=== PATIENT | female | born 1990 | race African-American/Black ===

== ENCOUNTER 2021-10-08 12:13 | Emergency (ER) | payer OTHER, SELFPAY ==
--- NOTE | ~2021-10-08 | CT_ITS ---
EXAMINATION: CTA chest PE protocol DATE: 10/08/2021 14:17 INDICATION: Shortness of breath TECHNIQUE: Computed tomography (CT) pulmonary angiogram of the chest was performed with 100 mL Omnipa que-350 intravenous contrast. Additional 3D reconstructions utilizing coronal maximum intensity proje ction (MIP) were performed. Automated exposure control and iterative reconstruction technique were em ployed. The dose-length product was 212.93 mGy-cm. COMPARISON: None FINDINGS: . contrast opacification of the pulmonary arteries. There is mild streak artifact from dense contrast in the superior vena cava and right atrium. No significant motion artifact. No pulmonary embolism. N o pneumonia, pulmonary edema, pleural effusion or pneumothorax. Heart size is normal. No pericardial effusion. Thoracic aorta is normal in caliber with no dissection. Small amount of mixed soft tissue a nd fat attenuation with typical triangular configuration the anterior mediastinum consistent with res idual thymic tissue. No pathologically enlarged thoracic lymphadenopathy. The upper abdomen and visua lized bones are unremarkable. IMPRESSION: 1. No pulmonary embolism or other acute cardiopulmonary disease. Reviewed, dictated and finalized at location A.
--- NOTE | ~2021-10-08 | XR_ITS ---
EXAMINATION: XR chest 2V DATE: 10/08/2021 12:52 INDICATION: Shortness of breath TECHNIQUE: PA and lateral views of the chest were obtained. COMPARISON: None FINDINGS: The lungs are clear with no focal airspace opacities, pulmonary edema, pleural effusion or pneumothor ax. The cardiomediastinal silhouette is normal. Mild right-sided vertebral body height loss at T11 wi th mild associated thoracolumbar levocurvature. IMPRESSION: 1. No acute cardiopulmonary disease. Reviewed, dictated and finalized at location A.
--- NOTE | 2021-10-08 12:28 | ECG_ITS ---
Measurements Intervals [place] Rate: 103 P: 72 NV: 145 QRS: 35 QRSD: 89 T: -37 QT: 327 QTc: 429 Interpretive Statements SINUS TACHYCARDIA POSSIBLE LEFT ATRIAL ENLARGEMENT [-0.1mV P WAVE IN V1/V2] CANNOT RULE OUT SEPTAL MYOCARDIAL INFARCTION , OF INDETERMINATE AGE [40+ ms Q WAVE IN V1/V2] NONSPECIFIC ST AND T-WAVE ABNORMALITY ABNORMAL ECG NO PREVIOUS ECG AVAILABLE FOR COMPARISON Electronically Signed On 10-08-2021 17:05:29 CDT by Nazario Mena M.D.
[2021-10-08 12:36] VITALS: BP 133/83; PULSE 102; RESP 20; TEMP 37.1; O2SAT 100
[2021-10-08 12:40] LABS: Basophils Percent Auto 0.3 % (0.2-1.2); Eosinophils Absolute Auto 0.1 K/mm3 (0-0.3); Eosinophils Percent Auto 1.2 % (0-4.4); Hematocrit 39.9 % (37.0-47.0); Hemoglobin 12.5 g/dL (12.0-15.0); Immature Granulocyte Absolute 0.01 K/mm3 (0.00-0.031); Immature Granulocyte Percent A 0.2 % (0-0.5); Lymphocytes Absolute Auto 2.02 K/mm3 (0.9-3.2); Lymphocytes Percent Auto 34.8 % (18.3-44.2); Mean Corpuscular HGB Conc 31.3 g/dl (32-36); Mean Corpuscular Hemoglobin 27.7 pg (26-34); Mean Corpuscular Volume 88.5 fl (80-100); Mean Platelet Volume 9.4 fl (7.4-10.4); Monocytes Absolute Auto 0.5 K/mm3 (0.1-0.6); Monocytes Percent Auto 7.7 % (2.6-8.5); Neutrophils Absolute Auto 3.2 K/mm3 (1.3-6.7); Neutrophils Percent Auto 55.8 % (45.5-73.1); Platelet Count Result 339 k/mm3 (150-375); Red Blood Count 4.51 M/mm3 (4.2-5.4); Red Cell Distribution Width 12.9 % (11.5-14.5); White Blood Count 5.8 K/mm3 (4.5-10.0)
[2021-10-08 12:54] LABS: Alanine Aminotransferase 14 U/L (4-35); Albumin Level 4.7 g/dL (3.5-5.1); Alkaline Phosphatase 62 U/L (38-126); Anion Gap 9 mmol/L (8-16); Aspartate Amino Transferase 25 U/L (14-36); Blood Urea Nitrogen 10 mg/dL (7-17); Carbon Dioxide 25 mmol/L (22-30); Chloride 105 mmol/L (98-107); Estimated CRCL calculation 91 ml/min; Estimated Glomerular Filt Rate > 60; Glucose 123 mg/dL (65-110); Potassium 3.5 mmol/L (3.4-5.0); Sodium 139 mmol/L (137-145)
--- NOTE | 2021-10-08 13:15 | PC.NURSE ---
Pt states she has a hx of PE 3 years ago and was hospitalized for a few days. States she was on warfarin immediately after.
[2021-10-08 13:18] VITALS: BP 98/63; PULSE 108; RESP 18; O2SAT 100
--- NOTE | 2021-10-08 15:03 | ED.SOB ---
HPI - SOB/Dyspnea General Chief Complaint: Shortness of Breath/Dyspnea Stated Complaint: sob/chest pain Time Seen by Provider: 10/08/21 13:25 History of Present Illness HPI Narrative: Patient is a 31-year-old female who presents ER with concerns for pulmonary embolism. Patient reports couple days ago she began having pain in her back but is started moving around into her right chest. Its worse with deep breath and with coughing and moving. No exertional dyspnea. No hemoptysis. No lower extremity swelling or cramping. No long distance travel. Patient has history of previous PE and is not currently anticoagulated. No history of heart disease. Related Data Allergies Allergy/AdvReac Type Severity Reaction Status Date / Time No Known Allergies Allergy Unverified 04/17/12 10:18 Review of Systems Review of Systems: All systems reviewed & are unremarkable except as noted in HPI and below Constitutional: Constitutional: Denies chills, Denies fever(s) and Denies weakness ENT: Denies nasal congestion and Denies sore throat Cardiovascular: Cardiovascular: Reports chest pain, Denies rapid heart rate and Denies radiating jaw, neck or arm pain Respiratory: Respiratory: Denies cough, Reports dyspnea and Denies wheezing Gastrointestinal: Gastrointestinal: Denies abdominal pain, Denies diarrhea, Denies nausea and Denies vomiting Musculoskeletal: Musculoskeletal: Reports back pain, Denies joint swelling and Denies muscle cramps Neurologic: Denies headache(s), Denies focal weakness and Denies numbness PMFSH Past Medical History Medical History (Updated 10/08/21 @ 15:06 by Pierce Godwin MD) Pulmonary embolism Surgical History Surgical History (Updated 10/08/21 @ 15:06 by Pierce Godwin MD) No pertinent past surgical history Social History Social History (Updated 10/08/21 @ 15:07 by Pierce Godwin MD) Smoking status: Never smoker Exam Narrative: GENERAL: Well-appearing, well-nourished, and in no acute distress. HEAD: Normocephalic, atraumatic. EYES: PERRL and EOMI. CHEST: Clear to auscultation. No respiratory distress. HEART: Regular rate and rhythm. Normal peripheral pulses. ABDOMEN: Soft, nontender, nondistended. EXTREMITIES: Normal range of motion. No edema. Back: No midline tenderness of the T/L-spine. No reproducible paraspinal or trapezius muscular tenderness. SKIN: Warm, dry, no rash. NEURO: Alert and oriented x3. PSYCH: Normal mood and affect. Course Course Emergency Course: Patient informed of results. Comforted by the fact that she does not have PE. Recommend anti-inflammatories at home. Patient verbalized understanding of treatment plan. Vital Signs Vital signs: Vital Signs Temperature 98.7 F 10/08/21 12:36 Pulse Rate 102 H 10/08/21 12:36 Respiratory Rate 20 10/08/21 12:36 Blood Pressure 133/83 10/08/21 12:36 Pulse Oximetry 100 10/08/21 12:36 Temperature 98.7 F 10/08/21 12:36 Pulse Rate 108 H 10/08/21 13:18 Respiratory Rate 18 10/08/21 13:18 Blood Pressure 98/63 L 10/08/21 13:18 Pulse Oximetry 100 10/08/21 13:18 MDM - SOB/Dyspnea Lab Data Result diagrams: 10/08/21 12:37 10/08/21 12:37 Labs: Lab Results 10/08/21 10/08/21 Range/Units 12:37 12:37 WBC 5.8 (4.5-10.0) K/mm3 RBC 4.51 (4.2-5.4) M/mm3 Hgb 12.5 (12.0-15.0) g/dL Hct 39.9 (37.0-47.0) % MCV 88.5 (80-100) fl MCH 27.7 (26-34) pg MCHC 31.3 L (32-36) g/dl RDW 12.9 (11.5-14.5) % Plt Count 339 (150-375) k/mm3 MPV 9.4 (7.4-10.4) fl Immature Gran % (Auto) 0.2 (0-0.5) % Neut % (Auto) 55.8 (45.5-73.1) % Lymph % (Auto) 34.8 (18.3-44.2) % Sandoval % (Auto) 7.7 (2.6-8.5) % Eos % (Auto) 1.2 (0-4.4) % Baso % (Auto) 0.3 (0.2-1.2) % Lymph # (Auto) 2.02 (0.9-3.2) K/mm3 Sandoval # (Auto) 0.5 (0.1-0.6) K/mm3 Eos # (Auto) 0.1 (0-0.3) K/mm3 Baso # (Auto) 0.0 (0.0-0.1) K/mm3 Abs Immat Gran (au
[2021-10-08 15:23] VITALS: BP 102/66; PULSE 70; RESP 18; O2SAT 98
== END 2021-10-08 15:24 | disposition home or self-care (01) ==
PROVIDERS: Emergency Medicine; Emergency Provider Emergency Medicine
DX: R07.89 Other chest pain (principal); M54.9 Dorsalgia, unspecified; Z86.711 Personal history of pulmonary embolism; R00.0 Tachycardia, unspecified; R94.31 Abnormal electrocardiogram [ECG] [EKG]
CPT/HCPCS: 36415; 71046; 71275; 80053; 85025; 93005; 99284; Q9967

== ENCOUNTER 2024-11-14 18:04 | Emergency (ER) | payer OTHER, SELFPAY ==
--- NOTE | ~2024-11-14 | CT_ITS ---
CTA chest PE protocol Ordering provider: Christie Mireles PA-C History: 34 years Female with . cp, sob, hemoptysis, hx PE . Comparison: None. Technique: CT angiogram chest was performed following timed intravenous injection of contrast. Thin s lice axial images and reformatted coronal images were obtained. Three dimensional reformatted images of the chest were also obtained using a [employer] workstation. . Automated exposure control and iterati ve reconstruction technique were employed. The dose-length product was 216.71 mGy-cm. 100 mL Omnipaqu e 350 was given IV. Findings: PULMONARY ARTERIES: No pulmonary embolus. VISUALIZED THORACIC INLET: Normal. MEDIASTINUM: Aorta/coronary arteries: The thoracic aorta is normal. Heart/other: The heart is not enlarged. Lymph nodes: No mediastinal or hilar adenopathy. LUNGS: No pulmonary nodules or masses. No infiltrates or effusions. No pneumothorax. Dependent atelectatic c hanges. VISUALIZED UPPER ABDOMEN: Cholelithiasis. Otherwise, the visualized upper abdomen is normal. The righ t renal arteries are noted. MUSCULOSKELETAL: Soft tissues: The superficial soft tissues are normal. Bones: Normal spine. IMPRESSION: 1. No pulmonary embolism. 2. No acute cardiopulmonary pathology. 3. Cholelithiasis. Reviewed, dictated and finalized at location A.
--- NOTE | ~2024-11-14 | XR_ITS ---
XR chest 2V Ordering provider: Christie Mireles PA-C History: 34 years Female with . CP . Comparison: October 08, 2021 FINDINGS: MEDIASTINUM: The cardiac silhouette is not enlarged. LUNGS: No infiltrates, effusions or pneumothorax. OTHER: No free air under the diaphragm. IMPRESSION: No acute cardiopulmonary pathology. Reviewed, dictated and finalized at location A.
--- OUTSIDE RECORDS SUMMARY | 2024-11-14 18:07 | XMS_ITS | Data Portability ---
Author Organization Lacey LAYTON Address [address] [place] [address] Assessment No assessment recorded. Plan of Treatment Reminders Order Date Submit Date Provider Last Modified By Organization Details Last Modified Time Details Appointments None recorded . Lab CBC w/ auto diff 2023 024 [facility], [address], [address], [place], [address], 4 19:09:08 PT/PTT, plasma 2018 019 [facility], [address], [address], [place], [address], 9 19:06:36 factor V mutation , blood or tissue 2018 019 [facility], [address], [address], [place], [address], 9 19:06:38 unlisted lab - protein C deficien cy profile 2018 019 [facility], [address], [address], [place], [address], 9 19:06:37 protein S activity , plasma 2018 019 [facility], [address], [address], [place], [address], 9 19:06:37 TSH + free T4, serum 2018 019 [facility], [address] [facility] [facility] [address], [place], [address], 9 19:06:35 CBC w/ auto diff [address] [facility], [address], [place], [address], 9 19:06:35 PT/INR 2018 019 [facility], [address], [place], [address], 9 10:13:00 PT/INR [address] [facility], [address], [place], [address], 9 15:18:40 Referral None recorded . Procedures None recorded . Surgeries None recorded . Imaging None recorded . Medication Orders Eliquis 5 mg tablet 2019 020 INTERFACE [facility] #[id number], [address], [place], [id number], 0 12:21:46 Xarelto 10 mg tablet 2018 019 [facility] #[id number], [address], [place], [id number], 0 11:40:41 Patient TargetsNo targets recorded. Patient InstructionsNo instructions recorded. Reason for Referral None Reported. Results Created Date Observation Date Name Description Value Unit Range Abnormal Flag Note LastModifiedBy Organization Detail LastModifiedTime 12/15/19 19 12/15/2018 PT/IN R INR 1.2 0.8-1. 2 Refer ence inter laura is for non-a ntico agula gill patie nts. Sugge sted INR thera peuti c range for Vitam in K antag onist thera py: Stand blu Dose (mode rate inten sity thera peuti c range ): 2.0 - 3.0 Highe r inten sity thera peuti c range 2.5 - 3.5 Not Available [facility] ([facility]) [address] [place], [address], 12/15/2018 10:13:00 12/15/1912/15/2018 PT/IN R prothrombin time 12.3 sec 9.1-12 .0 above high normal Not Available [facility] ([facility]) [address] [place], [address], 12/15/2018 10:13:00 12/15/1912/15/2018 PT/IN R pdf . Not Available [facility] ([facility]) [address] [place], [address], 12/15/2018 10:13:00 12/15/1912/15/2018 TSH + free T4, serum TSH 1.110 uIU/m L 0.450- 4.500 Not Available [facility] ([facility]) [address] [place], [address], 12/18/2018 19:06:35 12/15/1912/15/2018 TSH + free T4, serum T4,free(dire ct) 1.14 NG/dL 0.82-1 .77 Not Available [facility] ([facility]) [address] [place], [address], 12/18/2018 19:06:35 12/15/1912/15/2018 CBC w/ auto diff WBC 3.5 x10e3 /uL 3.4-10 .8 Not Available [facility] ([facility]) [address] [place], [address], 12/18/2018 19:06:35 12/15/1912/15/2018 CBC w/ auto diff RBC 4.90 x10e6 /uL 3.77-5 .28 Not Available [facility] ([facility]) [address] [place], [address], 12/18/2018 19:06:35 12/15/19 19 12/15/2018 CBC w/ auto diff hemoglobin 13.1 g/dL 11.1-1 5.9 Not Available [facility] ([facility]) [address] [place], [address], 12/18/2018 19:06:35 12/15/19 19 12/15/2018 CBC w/ auto diff hematocrit 41.3 % 34.0-4 6.6 Not Available [facility] ([facility]) [address] [place], [address], 12/18/2018 19:06:35 12/15/19 19 12/15/2018 CBC w/ auto diff MCV 84 fL 79-97 Not Available [facility] ([facility]) [address] [place], [address], 12/18/2018 19:06:35 12/15/1912/15/2018 CBC w/ auto diff MCH 26.7 pg 26.6-3 3.0 Not Available [facility] ([facility]) [address] [place], [address], 12/18/2018 19:06:35 12/15/1912/15/2018 CBC w/ auto diff MCHC 31.7 g/dL 31.5-3 5.7 Not Available [facility] ([facility]) [address] [place], [address], 12/18/2018 19:06:35 12/15/19 19 12/15/2018 CBC w/ auto diff RDW 15.0 % 12.3-1 5.4 Not Available [facility] ([facility]) [address] [place], [address], 12/18/2018 19:06:35 12/15/19 19 12/15/2018 CBC w/ auto diff platelets 357 x10e3 /uL 150-45 0 Not Available [facility] ([facility]) [address] [facility], [place], [address], 12/18/2018 19:06:35 12/15/19 19 12/15/2018 CBC w/ auto diff neutrophils 45 % not estab. Not Available [facility] ([facility]) [address] [facility], [place], [address], 12/18/2018 19:06:35 12/15/19 19 12/15/2018 CBC w/ auto diff lymphs 38 % not estab. Not Available [facility] ([facility]) [address] [place], [address], 12/18/2018 19:06:35 12/15/19 19 12/15/2018 CBC w/ auto diff monocytes 15 % not estab. Not Available [facility] ([facility]) [address] [place], [address], 12/18/2018 19:06:35 12/15/1912/15/2018 CBC w/ auto diff eos 1 % not estab. Not Available [facility] ([facility]) [address] [facility], [place], [address], 12/18/2018 19:06:35 12/15/19 19 12/15/2018 CBC w/ auto diff basos 1 % not estab. Not Available [facility] ([facility]) [address] [facility], [place], [address], 12/18/2018 19:06:35 12/15/1912/15/2018 CBC w/ auto diff immature cells [employer] SAL[employer] REPRESENTATIVE Not Available [facility] ([facility]) [address] [place], [address], 12/18/2018 19:06:35 12/15/19 19 12/15/2018 CBC w/ auto diff neutrophils (absolute) 1.6 x10e3 /uL 1.4-7. 0 Not Available [facility] ([facility]) [address] [place], [address], 12/18/2018 19:06:35 12/15/19 19 12/15/2018 CBC w/ auto diff lymphs (absolute) 1.3 x10e3 /uL 0.7-3. 1 Not Available [facility] ([facility]) [address] [place], [address], 12/18/2018 19:06:35 12/15/19 19 12/15/2018 CBC w/ auto diff monocytes(ab solute) 0.5 x10e3 /uL 0.1-0. 9 Not Available [facility] ([facility]) [address] [place], [address], 12/18/2018 19:06:35 12/15/19 19 12/15/2018 CBC w/ auto diff eos (absolute) 0.1 x10e3 /uL 0.0-0. 4 Not Available [facility] ([facility]) [address] [place], [address], 12/18/2018 19:06:35 12/15/19 19 12/15/2018 CBC w/ auto diff baso (absolute) 0.0 x10e3 /uL 0.0-0. 2 Not Available [facility] ([facility]) [address] [place], [address], 12/18/2018 19:06:35 12/15/19 19 12/15/2018 CBC w/ auto diff immature granulocytes 0 % not estab. Not Available [facility] ([facility]) [address] [place], [address], 12/18/2018 19:06:35 12/15/19 19 12/15/2018 CBC w/ auto diff immature grans (abs) 0.0 x10e3 /uL 0.0-0. 1 Not Available [facility] ([facility]) [address] [facility], [place], [address], 12/18/2018 19:06:35 12/15/19 19 12/15/2018 CBC w/ auto diff NRBC [employer] SALES REPRESENTATIVE Not Available [facility] ([facility]) [address] [facility], [place], [address], 12/18/2018 19:06:35 12/15/19 19 12/15/2018 CBC w/ auto diff hematology comments: [employer] SALES REPRESENTATIVE Not Available [facility] ([facility]) [address] [facility], [place], [address], 12/18/2018 19:06:35 12/15/19 19 12/15/2018 PT/PT T, plasm a INR 1.2 0.8-1. 2 Refer ence inter laura is for non-a ntico agula gill patie nts. Sugge sted INR thera peuti c range for Vitam in K antag onist thera py: Stand blu Dose (mode rate inten sity thera peuti c range ): 2.0 - 3.0 Highe r inten sity thera peuti c range 2.5 - 3.5 Not Available [facility] ([facility]) [address] [facility], [place], [address], 12/18/2018 19:06:36 12/15/19 19 12/15/2018 PT/PT T, plasm a prothrombin time 12.1 sec 9.1-12 .0 above high normal Not Available [facility] ([facility]) [address] [place], [address], 12/18/2018 19:06:36 12/15/19 19 12/15/2018 PT/PT T, plasm a APTT 32 sec 24-33 This test has not been valid ated for monit oring unfra ction ated hepar in thera py. aPTT- based thera peuti c range s for unfra ction ated hepar in thera py have not been estab lishe d. For gener al guide lines on Hepar in monit oring , refer to the [facility] Direc tory of Kristyn raphael. Not Available [facility] ([facility]) [address] [facility], [place], [address], 12/18/2018 19:06:36 12/15/19 19 12/16/2018 Coagu latio n Panel protein C-functional 101 % 73-180 Not Available [facility]) [address] [facility], [place], [address], 12/18/2018 19:06:37 12/15/19 19 12/18/2018 Coagu latio n Panel protein C antigen 90 % 60-150 Not Available [facility] ([facility]) [address] [facility], [place], [address], 12/18/2018 19:06:37 12/15/19 19 12/16/2018 prote in S activ ity, plasm a protein S-functional 15 % 63-140 below low normal A defic iency of prote in S (PS), eithe r conge nital or acqui red, incre ases the risk of throm boemb olism . PS activ ity level s may be false ly low in indiv idual s with APCR/ Facto r V Leide n. Consi shonda perfo rming free prote in S antig en in those with APCR/ Facto r V Leide n befor e sofi g a diagn osis of prote in S defic iency . Acqui red PS defic iency is more commo n than conge nital defic iency . PS value s decre ase with dmitriy l pregn ambar, and are also depen dent on age, sex and hormo ne statu s. PS value s tend to be lower in a young er age group and lower in women than in men. Level s may be decre ased in pre-m enopa usal women on oral contr acept jaclyn agent s. Acqui red defic iency can occur as a resul t of vitam in K defic iency or antag onism , sever e hepat ic disor ders, (hepa titis , cirrh osis, etc.) , nephr otic syndr ome, infla mmato ry bowel disea se, certa in chemo thera peuti c agent s, L-asp aragi nse thera py, sepsi s, disse minat ed intra vascu lar coagu latio n (DIC) and acute throm bosis . Level s may be decre ased in patie nts with polyc ythem ia vera, sickl e cell disea se and essen tial throm bocyt hemia . Iggy wild evalu ation on a new plasm a sampl e to confi rm or refut e this resul t shoul d be consi dered , after oxana callahan out acqui red cause s, depen ernesto on the clini carlton scena stefani. Nuris ified by iggy iwld lucy sis Not Available [facility] ([facility]) [address] [facility], [place], [address], 12/18/2018 19:06:37 12/15/1912/18/2018 facto r V mutat ion, blood or tissu e factor V leiden Commen t Resul t: Negat jaclyn (no mutat ion found ) Facto r V Leide n is a speci fic mutat ion (R506 Q) in the facto r V gene that is assoc iated with an incre ased risk of venou s throm bosis . Facto r V Leide n is more resis tant to inact ivati on by activ ated prote in C. As a resul t, facto r V persi sts in the circu latio n leadi ng to a mild hyper - coagu lable state . The Leide n mutat ion accou nts for 90% - 95% of APC resis tance . Facto r V Leide n has been repor gill in patie nts with deep vein throm bosis , pulmo nary embol us, centr al retin al vein occlu krystin, cereb ral sinus throm bosis and hepat ic vein throm bosis . Other risk facto rs to be consi dered in the kim p for venou s throm bosis inclu de the G2021 0A mutat ion in the facto r II (prot hromb in) gene, prote in S and C defic iency , and antit hromb in defic ienci es. Antic ardio lipin antib norah and lupus antic oagul ant lucy sis may be appro priat e for certa in patie nts, as well as homoc ystei ne level s. Conta ct your local [facility] for infor matio n on how to order addit ional testi ng if my ed. Gen etic couns elors are avail able for healt h care provi ders to discu ss resul ts at [phone] ([phone] ). Metho dolog y: DNA lucy sis of the Facto r V gene was perfo rmed by allel e-spe cific PCR. The diagn ostic sensi tivit y and speci ficit y is >99% for both. Molec ular- based testi ng is highl y accur ate, but as in any labor atory test, diagn ostic error s may occur . All test resul ts must be combi yi with clini carlton infor matio n for the most accur ate inter preta tion. This test was devel oped and its perfo rmanc e zoe cteri stics deter mined by [facility]. It has not been clear ed or appro kathy by the Food and Drug Admin istra tion. Refer ences : Brandon Thomas (1996 ). Clin [facility] 16:16 9-186 . Michele hein, PhD, FACMG Sharlene hartman, PhD, FAC Galina Null, MChetS., PhD, FACMG Air lang, PhD, FACMG Gaby Domingo, PhD, FACMG James goodman PhD, FACMG Not Available [facility] ([facility]) [address] [facility], [place], [address], 12/18/2018 19:06:38 08/10/19 24 08/10/2023 CBC WITH DIFFE RENTI AL/PL ATELE T WBC 6.1 x10e3 /uL 3.4-10 .8 Not Available [facility] [address] [place], [address], 08/10/2023 19:09:08 08/10/19 24 08/10/2023 CBC WITH DIFFE RENTI AL/PL ATELE T RBC 4.48 x10e6 /uL 3.77-5 .28 Not Available [facility] [address] [place], [address], 08/10/2023 19:09:08 08/10/19 24 08/10/2023 CBC WITH DIFFE RENTI AL/PL ATELE T hemoglobin 12.5 g/dL 11.1-1 5.9 Not Available [facility] [address] [place], [address], 08/10/2023 19:09:08 08/10/19 24 08/10/2023 CBC WITH DIFFE RENTI AL/PL ATELE T hematocrit 40.1 % 34.0-4 6.6 Not Available [facility] [address] [place], [address], 08/10/2023 19:09:08 08/10/19 24 08/10/2023 CBC WITH DIFFE RENTI AL/PL ATELE T MCV 90 fL 79-97 Not Available [facility] [address] [place], [address], 08/10/2023 19:09:08 08/10/19 24 08/10/2023 CBC WITH DIFFE RENTI AL/PL ATELE T MCH 27.9 pg 26.6-3 3.0 Not Available [facility] [address] [place], [address], 08/10/2023 19:09:08 08/10/19 24 08/10/2023 CBC WITH DIFFE RENTI AL/PL ATELE T MCHC 31.2 g/dL 31.5-3 5.7 below low normal Not Available [facility] [address] [place], [address], 08/10/2023 19:09:08 08/10/19 24 08/10/2023 CBC WITH DIFFE RENTI AL/PL ATELE T RDW 12.9 % 11.5-1 4.5 Not Available [facility] [address] [place], [address], 08/10/2023 19:09:08 08/10/19 24 08/10/2023 CBC WITH DIFFE RENTI AL/PL ATELE T platelets 413 x10e3 /uL 150-45 0 Not Available [facility] [address] [place], [address], 08/10/2023 19:09:08 08/10/19 24 08/10/2023 CBC WITH DIFFE RENTI AL/PL ATELE T neutrophils 54 % notest b. Not Available [facility] [address] [place], [address], 08/10/2023 19:09:08 08/10/19 24 08/10/2023 CBC WITH DIFFE RENTI AL/PL ATELE T lymphs 33 % notest b. Not Available [facility] [address] [place], [address], 08/10/2023 19:09:08 08/10/19 24 08/10/2023 CBC WITH DIFFE RENTI AL/PL ATELE T monocytes 10 % notest b. Not Available [facility] [address] [place], [address], 08/10/2023 19:09:08 08/10/19 24 08/10/2023 CBC WITH DIFFE RENTI AL/PL ATELE T eos 2 % notest b. Not Available [facility] [address] [place], [address], 08/10/2023 19:09:08 08/10/19 24 08/10/2023 CBC WITH DIFFE RENTI AL/PL ATELE T basos 1 % notest b. Not Available [facility] [address] [place], [address], 08/10/2023 19:09:08 08/10/19 24 08/10/2023 CBC WITH DIFFE RENTI AL/PL ATELE T neutrophils (absolute) 3.3 x10e3 /uL 1.4-7. 0 Not Available [facility] [address] [place], [address], 08/10/2023 19:09:08 08/10/19 24 08/10/2023 CBC WITH DIFFE RENTI AL/PL ATELE T lymphs (absolute) 2.0 x10e3 /uL 0.7-3. 1 Not Available [facility] [address] [place], [address], 08/10/2023 19:09:08 08/10/19 24 08/10/2023 CBC WITH DIFFE RENTI AL/PL ATELE T monocytes(ab solute) 0.6 x10e3 /uL 0.1-0. 9 Not Available [facility] [address] [place], [address], 08/10/2023 19:09:08 08/10/19 24 08/10/2023 CBC WITH DIFFE RENTI AL/PL ATELE T eos (absolute) 0.1 x10e3 /uL 0.0-0. 4 Not Available [facility] [address] [place], [address], 08/10/2023 19:09:08 08/10/19 24 08/10/2023 CBC WITH DIFFE RENTI AL/PL ATELE T baso (absolute) 0.1 x10e3 /uL 0.0-0. 2 Not Available [facility] [address] [place], [address], 08/10/2023 19:09:08 08/10/19 24 08/10/2023 CBC WITH DIFFE RENTI AL/PL ATELE T immature granulocytes 0.3 % notest b. Not Available [facility] [address] [place], [address], 08/10/2023 19:09:08 08/10/19 24 08/10/2023 CBC WITH DIFFE RENTI AL/PL ATELE T immature grans (abs) 0.0 x10e3 /uL 0.0-0. 1 Not Available [facility] [address] [place], [address], 08/10/2023 19:09:08 08/10/19 24 08/10/2023 CBC WITH DIFFE RENTI AL/PL ATELE T NRBC 0 % 0-0 Not Available [facility] [address] [place], [address], 08/10/2023 19:09:08 06/29/19 20 05/15/2019 CT, chest , w/ contr ast No observ ation [facility] ed. [facility] Ad[facility] Registration [address] [place], [address], 06/29/2019 16:35:22 Result Notes None recorded. Problems Name Problem SNOMED Code Status Onset Date Resolution Date Notes Provider Name and Address Organization Details Recorded Time Pulmonary embolism 49620815 Active 2018 I26.9 Sherin Crane RN null, [place] [facility] 0 10:12:36 Protein C deficiency disease 93130159 Active 2018 Lou Mariee MD Attn: Sigifredo callahan,[address] [place], [address] [facility] [place] [facility] 9 17:09:57 Protein S deficiency disease 7042618 Active 2019 D53.0 Sherin Crane RN [place], [place] [facility] 0 10:08:16 History of pulmonary embolism on long-term anticoagula tion therapy 4046961734704 9101 Active 2018 Z86.71 1 Sherin Crane RN null, [place] [facility] 0 10:11:39 Problem Notes None recorded. Procedures Surgical History Date Name Laterality Status Provider Name and Address Organization Details Recorded Time Caesarean Section completed Juan Pablo Whitney MA [facility] 11/17/2018 14:13:50 Imaging Results None recorded. Procedure Notes None recorded. Medical Equipment None Reported. Allergies Allergen ID Allergen Name Allergen Category Reaction Reaction Severity Criticality Documentation Date Start Date Code Code System Note Provider Name and Address Organization Details Recorded Time 113981 morphine medicatio n itching Not available Not available 11/17/2018 7052 RxNorm Juan Pablo Whitney MA [facility], [facility] 9 14:11:52 686903 warfarin medicatio n other severe Not available 06/29/2019 45622 RxNorm Cause s Kidne y Infec tion Sympt oms Sherin Crane RN [facility], [facility] 0 16:20:45 Medications Name Sig Start Date Stop Date Status Note LastModified by Organization Details LastModified Time Prescript ion - Prior Authoriza tion Request 07/06 completed [facility] Prior Authoriz ation Request Not Available Not Available Not Available acetamino phen 325 mg tablet 07/06 completed Not Available Not Available Not Available azithromy guerline 250 mg tablet 11/17 completed Not Available Not Available Not Available fluconazo le 150 mg tablet 11/17 completed Not Available Not Available Not Available metronida zole 0.75 % (37.5 mg/5 gram) vaginal gel INSERT 1 APPLICAT ORFUL VAGINALL Y EVERY DAY AT BEDTIME FOR 5 NIGHTS active Not Available Not Available No t Available warfarin 5 mg tablet 07/06 completed Not Available Not Available Not Available levofloxa guerline 500 mg tablet 07/06 completed Not Available Not Available Not Available naproxen 500 mg tablet 11/17 completed Not Available Not Available Not Available Xarelto 10 mg tablet 07/06 completed Not Available Not Available Not Available Eliquis 5 mg tablet active [facility] Not Available Not Available Not Available Vitals Date Recorded Body height Body mass index (BMI) Body weight Body temperature Oxygen saturation Oxygen saturation in Arterial blood by Pulse oximetry Heart rate Provider Name and Address Organization Details Last Updated DateTime 0 170.82 cm 24.5 kg/m2 55255.8 8 g 98.4 [degF] 100 % 100 % 96 /min Juan Pablo Whitney MA [facility] 0 11:47:17 Date Recorded Body height Body mass index (BMI) Body weight Heart rate Oxygen saturation Oxygen saturation in Arterial blood by Pulse oximetry Systolic blood pressure Diastolic blood pressure Provider Name and Address Organization Details Last Updated DateTime 4 170.18 cm 28 kg/m2 52572.0 3 g 86 /min 100 % 100 % 126 mm[Hg] 78 mm[Hg] Ericka Ramirez MA [facility] 4 11:25:42 Date Recorded Body height Body mass index (BMI) Body weight Body temperature Oxygen saturation Oxygen saturation in Arterial blood by Pulse oximetry Heart rate Systolic blood pressure Diastolic blood pressure Provider Name and Address Organization Details Last Updated DateTime 9 170.82 cm 23.6 kg/m2 36855.4 7 g 98.4 [degF] 98 % 98 % 93 /min 90 mm[Hg] 56 mm[Hg] Juan Pablo Whitney MA [facility] 9 14:19:28 Date Recorded Body height Body mass index (BMI) Body weight Heart rate Body temperature Oxygen saturation Oxygen saturation in Arterial blood by Pulse oximetry Systolic blood pressure Diastolic blood pressure Provider Name and Address Organization Details Last Updated DateTime 9 170.82 cm 23.4 kg/m2 82967.2 9 g 88 /min 98.1 [degF] 98 % 98 % 102 mm[Hg] 68 mm[Hg] Yolanda Akins [facility] 9 11:22:26 Social History Question Answer Notes LastModified by Organizat ion Details LastModified Time Tobacco Smoking Status Never Smoker Juan Pablo Whitney MA null, [facility] 11/17/2018 14:13:59 Do You Have An Advance Directive? No Information not available 08/10/2023 Are You Blind Or Do You Have Difficulty Seeing? No Information not available 08/10/2023 What Is Your Level Of Caffeine Consumption? Occasional Information not available 12/14/2018 How Much Tobacco Do You Chew? None Information not available 12/14/2018 Are You Deaf Or Do You Have Serious Difficulty Hearing? No Information not available 08/10/2023 What Type Of Diet Are You Following? REGULAR Information not available 12/14/2018 Which Illicit Or Recreational Drugs Have You Used? Marijuana Information not available 12/14/2018 What Is The Highest Grade Or Level Of School You Have Completed Or The Highest Degree You Have Received? [id number] Information not available 08/10/2023 Marital Status Informatio n not available 12/14/2018 What Was The Date Of Your Most Recent Tobacco Screening? 08/10/2023 Information not available 08/10/2023 What Is Your Relationship Status? Single Information not available 08/10/2023 Do You Use Your Seat Belt Or Car Seat Routinely? Yes Information not available 08/10/2023 General Stress Level Low Information not available 12/14/2018 Sex: Female Functional Status Question Answer Note LastModified by Organizat ion Details LastModified Time Do you use any illicit or recreational drugs? No Information not available 08/10/2023 What is your level of alcohol consumption? Occasional [email or web address] Information not available 11/17/2018 Are you currently employed? Yes Information not available 08/10/2023 Are you able to care for yourself? Yes Information not available 08/10/2023 What is your occupation? [employer] Information not available 08/10/2023 What is your exercise level? None Information not available 12/14/2018 Mental Status Question Answer Note LastModified by Organization D etails LastModified Time Do you feel stressed (tense, restless, nervous, or anxious, or unable to sleep at night)? [id number] Information not available 08/10/2023 Family History Nothing Reported. Medical History Condition Response Blood Clots Y Gynecological History Statement/Question Response Flow Moderate Date of LMP 07/19/2023 Frequency of Cycle (Q days) 30 On BCP's at Conception? N Menses Monthly Y Duration of Flow (days) 4 Age at Menarche 16 Current Control Method Unknown Age at First Child 19 LMP Approximate Obstetrics History GPAL:G 2 P 2 0 0 2 Type Value Full Term 2 Living 2 Total 2 Past Encounters Encounter ID Performer Location Encounter Start Date Encounter Closed Date Diagnosis/Indication Diagnosis SNOMED-CT Code Diagnosis ICD10 Code Diagnosis Note [id number] Lou Mariee [facility] (Adult [facility] [address] [place] [address] [phone] 11/17/2018 13:50:56 11/17/2018 17:19:06 History of pulmonary embolus 566855642 Z86.711 On coumadin. 5 mg/day , discussed with patient about pro nd con, benefit and possible risks and needs at least 6 months duration of treatment and regulat monitoring of INR and adjustment of dosage. She just got 30 days . About 10 days ago in hospital. [id number] MD [facility] (Adult Med) [address] [place] [address] [phone] 12/14/2018 11:00:07 12/15/2018 10:40:05 History of pulmonary embolus 838095863 Z86.711 On coumadin. 5 mg/day , discussed with patient about pro nd con, benefit and possible risks and needs at least 6 months duration of treatment and regulat monitoring of INR and adjustment of dosage. She just got 30 days . About 10 days ago in hospital. Her protime and INR was over 6 for which coumadin was stopped for 1 week, and she is going to be out of town, It is very difficulty to manage her Pulmonary Emboli with precise INR, will try xarelto with prio authorizat ion from her insurance . Discussed with patient. Unintentio nal weight loss 055968350 R63.4 Discussed with patient. 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 [id number] MD [facility] (Adult Med) [address] [place] [address] [phone] 07/06/2019 11:05:52 07/10/2019 09:35:13 Protein C deficiency disease [id number] D68.59 Discussed with patient. was provided the report of her protein S deficiency , needs life ling anticoagul ant with angela simons, she agreed the eliquis. ailin has no sign/sympt omes of Thrombosis . [id number] MD [facility] (Adult Med) [address] [place] [address] [phone] 08/10/2023 11:08:16 08/15/2023 17:32:01 Adult health examination [id number] Z00.00 Physical ex performed today. She wants hemoglobin today, which will be in CBC, she agreed, Health Concerns Section Related Observation LastModified by Organization [place] [facility] LastModified Time None Recorded Concern Status LastModified by Organization Details LastModified Time None Recorded Advance Directives Directive N: Payers Encounter Date Sequence Insurance Name Policy Number Policy Branch Covered Member ID Branch Member ID Guarantor Name 11/17/2018 1 [facility] PRIOR TO 12/18/2020 (MEDICAID REPLACEMENT - HMO) Neha Flood [id number] Neharusty Flood 12/14/2018 1 [facility] PRIOR TO 12/18/2020 (MEDICAID REPLACEMENT - HMO) Neha Flood [id number] Neha Flood 07/06/2019 1 [facility] PRIOR TO 12/18/2020 (MEDICAID REPLACEMENT - HMO) Neha Flood [id number] Neha Flood 08/10/2023 1 [facility] PRIOR TO 12/18/2020 (MEDICAID REPLACEMENT - HMO) Neha Flood [id number] Neha Flood Notes Date Note Type Note Provider Name and Address Organization Details Recorded Time 11/17/2018 text/html First time, hospital visit for PE.. Allergic to morphine. Has controll implantation. not a smoker. Lou Mariee MD Attn: [address] [place], [address], [facility] 11/17/2018 16:08:59 12/14/2018 text/html 1. Went to [facility] last week, no UTI. 2. INR was 6 one week ago , coumadin was off since for one week,. 3.Loosing weight , allergic to morphine. She is going to discuss with her Database Specialist for the alternative of controll pill or method, since she had PE in October 2018., hard to manage her INR and coumadin, will request the alternative anticoagulant. Will check up the genetic coagulant defect. Lou Mariee MD Attn: [address] [place], [address], [facility] 12/14/2018 11:51:25 08/10/2023 text/html Office visit, wants surgical clearnce before surgery for breasts augmentation mammaplasty at [place] next month. No cardiac condition, no chest pain, no shortness of breath, no fever, on no anticoagulation med. No swelling of legs, .years ago had C/Sections. ROS as noted in HPI. Lou Mariee MD Attn: [address] [facility], [place], [address], [facility] 08/10/2023 17:54:35 OBGyn Episode No OBEpisode recorded.
--- OUTSIDE RECORDS SUMMARY | 2024-11-14 18:07 | XMS_ITS | Clinical Summary ---
Author Organization [facility] [employer] Address [address] [place] [address] Care Team Providers Care Neon Sign Installer Name Role Phone Unavailable Primary Care Provider Unavailabl e Source Comments [facility] [employer],non-owned Affiliates and Associated Physician Practices is amultiple site organization consisting of ambulatory clinics and hospital sitesin [place], [place], [place] and [place]. This disclosure is being madepursuant to the Care Everywhere program and may not contain all information available regarding this patient. Last updated 18.[facility] [employer] Allergies Active Allergy Reactions Criticality Noted Date Comments Morphine Itching Low 12/06/2018 Warfarin Other High 09/14/2023 Medications * Be aware that medications may not be up to date on this document. Alwaysverify current medications with the patient. ibuprofen (MOTRIN) 400 MG tablet Take 1 tablet by mouth every 6 hours as needed for Pain 30 tablet 0 Active Additional Information Patient not taking.Reported on 09/14/2023 Active Problems No known active problems Family History Medical History Relation Name Comments None Known Father None Known Mother Relation Name Status Comments Father Mother Social History Tobacco Use Types Packs/Day Years Used Date Smoking Tobacco: Never Smokeless Tobacco: Never Tobacco Cessation:Counseling Given: Not Answered Comments:Formerly smoked hookah socially (not since 2018) Alcohol Use Standard Drinks/Week Comments Yes 0 (1 standard drink = 0.6 oz pur e alcohol) ocassional Comments No Sex and Gender Information Value Date Recorded Sex Assigned at Not on file Legal Sex Female 10:36 PM CDT Gender Identity Not on file Sexual Orientation Not on file Last Filed Vital Signs Vital Sign Reading Time Taken Comments Blood Pressure 109/76 09/14/2023 12:09 PM CDT Pulse 84 09/14/2023 12:09 PM CDT Temperature 37.4 C (99.3 F) 09/14/2023 12:09 PM CDT Respiratory Rate 16 09/14/2023 12:09 PM CDT Oxygen Saturation 98% 09/14/2023 12:09 PM CDT Inhaled Oxygen Concentration - - Weight 82.7 kg (182 lb 4.8 oz) 09/14/2023 12:09 PM CDT Height 172.7 cm (5' 8) 05/30/2020 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 Body Mass Index 27.72 05/30/2020 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 Plan of Treatment Health Maintenance Due Date Last Done Comments PAP SMEAR 1992 HIV SCREENING 2007 HEPATITIS C SCREENING 06/08/2010 DTAP/TDAP/TD VACCINES (1 - Tdap) 2011 HEPATITIS B VACCINE (1 of 3 - 19+ 3-dose series) 2011 COVID-19 VACCINE (1 - 2023-2 5 season) 2024 DEPRESSION SCREENING 06/20/2024 INFLUENZA VACCINE (Season Ended) 2025 ZOSTER VACCINE (1 of 2) 2042 HIB VACCINE Aged Out No longer eligi ble based on patient's age to complete this topic HPV VACCINE Aged Out No longer eligi ble based on patient's age to complete this topic MENINGOCOCCAL (Group B) VACC INE SHARED DECISION-MAKING Aged Out No longer eligibl e based on patient's age to complete this topic MENINGOCOCCAL GROUPS A/C/Y/W VACCINE Aged Out No longer eligible b ased on patient's age to complete this topic PNEUMOCOCCAL VACCINE Aged Out No long er eligible based on patient's age to complete this topic Insurance JIMENA
--- OUTSIDE RECORDS SUMMARY | 2024-11-14 18:07 | XMS_ITS | CONTINUITY OF CARE DOCUMENT ---
Author Name joao shepherd Address Unknown Organization [facility] Address [address] [facility] [address] [place] [address] Phone [phone] Care Team Providers Care [employer] Name Role Phone Audelia Murillo MD Unavailable [phone] Audelia Murillo MD Unavailable INSURANCE PROVIDERS Payer name Policy type / Coverage type Olivia red green party ID [id number] MEDICAID (2) Medicaid [id number]
--- OUTSIDE RECORDS SUMMARY | 2024-11-14 18:07 | XMS_ITS | Data Portability ---
Author Organization [facility] Address [address] [place] [address] Care Team Providers Care District Manager Name Role Phone GUMARO FENTON Primary Care Provider [phone] Assessment Encounter Date Assessment Date Assessment LastModified by Organization Details LastModified Time 05/25/2021 05/25/2021 nexplanon removed, replaced. WWE done 02/2021. [email or web address] Not available 05/26/2021 09:00:07 05/20/2022 05/20/2022 Annual gynecological exam performed. Patient will come back in a year unless there are new symptoms. Not available 05/20/2022 17:43:09 08/03/2023 08/03/2023 Annual gynecological exam performed. Patient will come back in a year unless there are new symptoms. [email or web address] Not available 08/03/2023 18:49:25 Plan of Treatment Reminders Order Date Submit Date Provider Last Modified By Organization Details Last Modified Time Details Appointments None recorded. Lab None recorded. Referral primary care provider referral 2023 024 [email or web address] Shira Mays FIRE ALARM TECHNICIAN, [address] [facility] , [address], [place], [address], 10:13:17 Procedures None recorded. Surgeries None recorded. Imaging None recorded. Medication Orders Metrogel Vaginal 0.75 % (37.5 mg/5 gram) 2021 022 [email or web address] [facility] [facility][id number], [address], [place], [place], [id number], 4 18:50:30 Patient TargetsNo targets recorded. Patient InstructionsNo instructions recorded. Reason for Referral Primary Care Provider Referr al for Adult health examination Referring Physician: Kelly Velásquez, BOOKKEEPING MACHINE OPERATOR, Encounter Date: 08/03/2023 Results Created Date Observation Date Name Description Value Unit Range Abnormal Flag Note LastModifiedBy Organization Detail LastModifiedTime 05/23/2005/23/2021 SURGI TIMA PATHO LOGY surgical pathology SEE RESULT S BELOW CASE REPOR T: Surgi tima Patho logy Repor t Case: [id number] Autho mikala callahan Provi shonda: Otto Browne Colle cted: 05/23 1315 FIRE ALARM TECHNICIAN Order ing Locat ion: [place] Patho logy Recei kathy: 05/26 0125 Patho logis t: Pato Paulino MD Speci mens: A) - Endoc ervix , ECC B) - Cervi x, TMZ spira cervi tima bx / TM@ spira cervi tima bx C) - Cervi x, 2 o'sadiq ck FINAL DIAGN OSIS: A. Endoc ervix , curet tage: -Scan t fragm ents of benig n endoc ervic al mucos a. B. Cervi x, trans forma tion zone, biops y: -Foca l low-g rade squam ous intra epith elial lesio n (MAJO- 1). -Sepa rate fragm ents of benig n endoc ervic al mucos a. C. Cervi x, 2:00, biops y: -Low- grade squam ous intra epith elial lesio n (MAJO- 1). Ryan linda by Pato Paulino MD on 2020 at 2:03 PM ----- ----- ----- ----- ----- ----- ----- ----- ----- ----- ----- ----- ----- ----- ----- ----- ----- ---- CLINI TIMA INFOR MATIO N: R87.6 12 MICRO SCOPI C DESCR IPTIO N: A micro scopi c exami natio n was perfo rmed. GROSS DESCR IPTIO N: A. Endoc ervix . The speci men is label ed with the patie nt's name, sepidehog raphi cs and ECC . Recei kathy in forma jose armando is a 0.2 x 0.1 x 0.1 cm aggre gate of minut e red tissu e and mucus . It is submi tted all in one casse tte. Gross ed by Paras Phan on B. Cervi x. The speci men is label ed with the patie nt's name, sepidehog eliani cs and tmz spira l cervi tima BX. Recei kathy in forma jose armando and on a biops y brush is a 0.2 x 0.1 x 0.[address] gate of minut e white tissu e and mucus . It is submi tted all in one casse tte. Gross ed by Paras Phan on C. Cervi x. The speci men is label ed with the patie nt's name, milla plummeri cs and 2:00 cervi tima BX. Recei kathy in forma jose armando is a 0.6 cm fragm ent of white -morales tissu e. The entir e speci men is submi tted in one casse tte. Gross ed by Paras Phan on Not Available [place] [facility] (Lab) [address], [place], [address], 05/26/2021 15:06:28 05/23/20 21 05/23/2021 pregn ambar test, urine HCG negati ve Not Available [place] [address], [place], [address], 05/23/2021 14:11:35 05/23/20 21 05/23/2021 pregn ambar test, urine HCG negati ve Not Available [place] [address] [place], [address], 05/23/2021 12:56:17 05/20/20 22 05/20/2022 IMAGE GUIDE D PAP, REFLE X HPV IF ASCUS ONLY image guided Pap, reflex HPV ASCUS only SEE RESULT S BELOW abnormal CASE REPOR T: Cytol ogy Gynec ologi tima Repor t Case: [id number] Autho mikala callahan Provi shonda: Kamar yanethOtto gonzalez Colle cted: 05/20 1705 FIRE ALARM TECHNICIAN Order ing Locat ion: [place] Patho logy Recei kathy: 05/21 0724 First Scree n: Nolvia Kirkland ica Patho logis t: Saulo Serrano MD Speci men: Diagn ostic Pap - Image d, Cervi x STATE MENT OF ADEQU ACY: Satis facto ry for evalu ation Trans forma tion zone compo nent prese nt FINAL DIAGN OSIS: Epith elial Cell Abnor malit y, Squam ous Cell: Atypi tima squam ous cells canno t exclu de a high- grade squam ous intra epith elial lesio n (ASC- H). Backg round of low-g rade squam ous intra epith elial lesio n (LSIL ). Funga l organ isms morph ologi rodrigo consi stent with Arely da spp. Elect rayray nguyen deysi d by Saulo Serrano MD on 2021 at 4:40 PM ----- ----- ----- ----- ----- ----- ----- ----- ----- ----- ----- ----- ----- ----- ----- ----- ----- ---- COMME NT: Note: This speci men was revie wed by a Cytot echno logis t and/o r Patho logis t (as indic ated in this repor t) after evalu ation using the Thinp rep Imagi ng Syste m. CLINI TIMA INFOR MATIO N: Menst rual Statu s: LMP (if appli cable ): Clini tima Histo ry/Pr eviou s Pap: Type of Neopl lionel (if appli cable ): Signi bridget t Clini tima Findi ngs: Other Histo ry: Hormo braden (if appli cable ): MEY RAHMAN FOLLO W-UP: Follo w up as warra nted, based on curre nt guide lines and indiv idual patie nt consi derat ions. Not Available [place] [facility] (Lab) [address], [place], [address], 05/24/2022 17:43:50 05/20/20 22 05/20/2022 CT/GC (PAPA) , THINP REP VIAL chlamydia trachomatis, PCR Negati ve negati ve Not Available [place] [facility] (Lab) [address], [place], [address], 05/24/2022 17:43:51 05/20/20 22 05/20/2022 CT/GC (PAPA) , THINP REP VIAL neisseria gonorrhoeae, PCR Negati ve negati ve Not Available [place] [facility] (Lab) [address], [place], [address], 05/24/2022 17:43:51 05/20/20 22 05/20/2022 TRICH OMONA S VAGIN ROSANGELA (RRNA ) trichomonas vaginalis ribosomal RNA (rrna) Negati ve negati ve Not Available [place] [facility] (Lab) [address], [place], [address], 05/24/2022 17:43:51 07/08/19 23 07/08/2022 SURGI TIMA PATHO LOGY surgical pathology SEE RESULT S BELOW CASE REPOR T: Surgi tima Patho logy Repor t Case: [id number] Autho mikala callahan Provi shonda: Otto Browne Colle cted: 07/08 1629 FIRE ALARM TECHNICIAN Order ing Locat ion: [place] Patho logy Recei kathy: 07/09 0529 Patho logis t: Will Tejeda MD Speci mens: A) - Cervi x, CXBX 8 o'sadiq ck B) - Endoc ervix , ECC FINAL DIAGN OSIS: A. Cervi x, 8:00, biops y: -Low- grade squam ous intra epith elial lesio n (MAJO- 1). B. Endoc ervix , curet tage: -Brittni te fragm ent of endoc ervic al epith elium admix ed in mucus , negat jaclyn for dyspl lionel. Elect rayray jo d by Will Tejeda MD on 2022 at 1:06 PM ----- ----- ----- ----- ----- ----- ----- ----- ----- ----- ----- ----- ----- ----- ----- ----- ----- ---- CLINI TIMA INFOR MATTHAI N: r87.6 10 MICRO SCOPI C DESCR IPTIO N: A micro scopi c exami natio n was perfo rmed. GROSS DESCR IPTIO N: A. Cervi x. The speci men is label ed with the patie nt's name, milla bolton cs and 8:00 . Recei kathy in forma jose armando is a 0.8 x 0.5 x 0.2 cm piece of white -morales tissu e. The speci men is bisec gill and is submi tted all in one casse tte. Gross ed by Jabier rivera B. Endoc ervix . The speci men is label ed with the patie nt's name, milla plummernathan cs and ECC . Recei kathy in forma jose armando is a less than 0.1 [address] of mucus and minut e white -morales tissu e. The entir e speci men is filte red throu gh a filte r bag and is submi tted in one casse tte; howev er, defin itive tissu e may not survi ve proce ssing . Gross ed by Jabier rivera Not Available [facility] (Lab) [address], [place], [address], 07/09/2022 14:08:04 10/19/19 23 10/18/2022 CT/GC AND TRICH OMONA S VAGIN ROSANGELA (RRNA ), SWAB chlamydia trachomatis, PCR NEGATI VE negati ve Not Available [place] [facility] (Lab) [address], [place], [address], 10/19/2022 19:11:18 10/19/19 23 10/18/2022 CT/GC AND TRICH OMONA S VAGIN ROSANGELA (RRNA ), SWAB neisseria gonorrhoeae, PCR NEGATI VE negati ve Not Available [place] [facility] (Lab) [address], [place], [address], 10/19/2022 19:11:18 10/19/19 23 10/18/2022 CT/GC AND TRICH OMONA S VAGIN ROSANGELA (RRNA ), SWAB trichomonas vaginalis ribosomal RNA (rrna) NEGATI VE negati ve Not Available [facility] (Lab) [address], [place], [address], 10/19/2022 19:11:18 10/19/19 23 10/18/2022 VAGIN ITIS/ VAGIN OSIS, DNA PROBE alethea sp. detection, direct probe NEGATI VE negati ve Not Available [facility] (Lab) [address], [place], [address], 10/19/2022 19:11:19 10/19/19 23 10/18/2022 VAGIN ITIS/ VAGIN OSIS, DNA PROBE gardnerella vag. detection, direct probe POSITI VE negati ve abnormal Not Available [place] [facility] (Lab) [address], [place], [address], 10/19/2022 19:11:19 10/19/19 23 10/18/2022 VAGIN ITIS/ VAGIN OSIS, DNA PROBE trichomonas vag. detection, direct probe NEGATI VE negati ve Not Available [facility] (Lab) [address], [place], [address], 10/19/2022 19:11:19 08/04/19 24 08/04/2023 IMAGE GUIDE D PAP AND HPV REGAR DLESS image guided Pap, HPV regardless of Pap result SEE RESULT S BELOW abnormal CASE REPOR T: Cytol ogy Gynec ologi tima Repor t Case: [id number] Autho mikala callahan Provi shonda: Otto Browne Colle cted: 08/04 1022 FIRE ALARM TECHNICIAN Order ing Locat ion: [place] Patho logy Recei kathy: 08/05 0018 First Scree n: Randy Salazar, CT Patho logis t: Kleber Ocon[address] rd, MD Speci men: Scree jam Pap - Image d, Cervi x STATE MENT OF ADEQU ACY: Satis facto ry for evalu ation Trans forma tion zone compo nent prese nt FINAL DIAGN OSIS: Negat jaclyn for Intra epith elial Lesio n or Coni hood (NIL) . Infla mmato ry Cell Canales es (incl udes typic al repai r). Shift in darion sugge stive of bacte rial vagin osis. Elect rayray linda by Kleber [address], MD on 2023 at 1:52 PM ----- ----- ----- ----- ----- ----- ----- ----- ----- ----- ----- ----- ----- ----- ----- ----- ----- ---- HPV RESUL TS: HPV mRNA E6/E7 : Posit jaclyn - HPV mRNA Detec gill HPV GENOT YPE 16 (PAPA) : Not Detec gill HPV GENOT YPE 18/45 (PAPA) : Not Detec gill NOTE: This high risk HPV mRNA assay detec ts fourt een high- risk HPV types (16, 18, 31, 33, 35, 39, 45, 51, 52, 56, 58, 59, 66, 68) witho ut diffe renti ation . This assay can diffe renti ate HPV 16 from HPV 18/45 , but does not diffe renti ate betwe en HPV 18 and HPV 45. A negat jaclyn HPV 16, 18/45 genot ype assay resul t does not exclu de the possi bilit y of cytol ogic abnor malit ies or of futur e or under lying MAJO 1, MAJO 3 or cance r. COMME NT: This speci men was revie wed by a Cytot echno logis t and/o r Patho logis t (as indic ated in this repor t) after evalu ation using the Thinp rep Imagi ng Syste m. CLINI TIMA INFOR MATIO N: Menst rual Statu s: LMP (if appli cable ): Clini tima Histo ry/Pr eviou s Pap: Type of Neopl lionel (if appli cable ): Signi fican t Clini tima Findi ngs: Other Histo ry: Hormo braden (if appli cable ): PAP EDUCA HEATHER L NOTE: The Pap Test is a scree jam test with an inher ent false negat jaclyn rate. Liqui d-bas ed sampl ing may decre ase, but will not elimi ashlee, false negat jaclyn resul ts. A negat jaclyn resul t does not precl ude the prese nce and/o r devel opmen t of disea se, since the prese nce of abnor mal cells in the sampl e depen ds on the locat ion of the lesio n and sampl ing techn ique. Cain nued regul ar scree jam is the best metho d of cance r preve ntion . If repor gill cytol ogic findi ng do not corre late with physi tima and/o r histo rical findi ngs, furth er inves tigat ion is recom phyllis d, as clini rodrigo de leon nted. Not Available [facility] (Lab) [address], [place], [address], 08/10/2023 14:56:57 Result Notes None recorded. Problems Name Problem SNOMED Code Status Onset Date Resolution Date Notes Provider Name and Address Organization Details Recorded Time SNOMED CT Concept Completed 201806/27/2020 Encntr for supervisor chassis assembly exam (general ) (routine ) w/o abn findings ;Recorde d Elsewher e: No Locat ion: [facility] S ource: EHR Solids Control Technician susan: N Rosanati ce ID: 0001 Magen lable Time: 11:45:00 AM Liz verdin, [facility] 1 10:53:09 Vaginiti s and vulvovag initis Completed 201406/27/2020 Vaginiti s;Record ed Elsewher e: No Locat ion: [facility] S ource: EHR Solids Control Technician susan: N Rosanati ce ID: 0001 Magen lable Time: 12:15:00 PM Liz verdin, [facility] 10:53:36 Routine antenata l care Completed 201106/27/2020 Supervis ion of other normal pregnanc y;Record ed Elsewher e: No Locat ion: [facility] S ource: EHR Solids Control Technician susan: N Practi ce ID: 0001 Magen lable Time: 03:00:00 PM Liz verdin [facility] 10:52:53 Dysuria [id number] Completed 201406/27/2020 Dysuria; Recorded Elsewher e: No Locat ion: [facility] S ource: EHR Solids Control Technician susan: N Practi ce ID: 0001 Magen lable Time: 03:30:00 PM Liz verdin [facility] 10:52:31 Speciali zed medical examinat ion Completed 201406/27/2020 ROUTINE PARTS COUNTER ASSOCIATE EXAMINAT ION;Remy rded Elsewher e: No Locat ion: [facility] S ource: EHR Solids Control Technician susan: N Practi ce ID: 0001 Magen lable Time: 02:00:00 PM Liz verdin [facility] [address] 10:53:[address] Concept Completed 201506/27/2020 Encntr for general adult medical exam w/o abnormal findings ;Recorde d Elsewher e: No Locat ion: [facility] S ource: EHR Solids Control Technician susan: N Practi ce ID: 0001 Magen lable Time: 10:30:00 AM Liz Coleman [facility] 1 10:53:05 Screenin g for malignan t neoplasm of cervix Completed 201106/27/2020 Screenin g for malignan t neoplasm s of the cervix;R ecorded Elsewher e: No Locat ion: [facility] S ource: EHR Solids Control Technician susan: N Practi ce ID: 0001 Magen lable Time: 10:30:00 AM Liz Coleman velvet [facility] 1 10:52:51 Implanta tion of subcutan eous contrace ptive Completed 201106/27/2020 Insertio n of implanta ble subderma l contrace ptive;Re corded Elsewher e: No Locat ion: [facility] S ource: EHR Solids Control Technician susan: N Practi ce ID: 0001 Magen lable Time: 01:30:00 PM Liz Conroytz velvet [facility] 1 10:52:28 Urinary tract infectio us disease [id number] Completed 201606/27/2020 UTI;Remy rded Elsewher e: No Locat ion: [facility] S ource: EHR Solids Control Technician susan: N Practi ce ID: 0001 Magen lable Time: 03:00:00 PM Liz verdin [facility] [address] 10:53:[address] Concept Completed 201406/27/2020 Encounte r for surveill ance of other contrace ptives;R ecorded Elsewher e: No [facility] S ource: EHR Solids Control Technician susan: N Practi ce ID: 0001 Magen lable Time: 10:00:00 AM Liz Coleman velvet, [facility] 10:53:11 Syphilis test finding [id number] Completed 201706/27/2020 Encntr screen for infectio ns w sexl mode of transmis s;Record ed Elsewher e: No Locat ion: [facility] S ource: EHR Solids Control Technician susan: N Practi ce ID: 0001 Magen lable Time: 10:45:00 AM Liz Coleman [facility], [facility] 10:53:21 Chlamydi al infectio n [id number] Completed 201403/17/2021 Unspecif ied chlamydi al infectio n;Record ed Elsewher e: No Locat ion: [facility] S ource: EHR Solids Control Technician susan: N Practi ce ID: 0001 Magen lable Time: 11:42:06 AM Ara Simmsan [facility], [facility] 11:42:22 Infectio n screenin g Completed 201706/27/2020 Encounte r for screenin g for oth infec/pa rastc diseases ;Recorde d Elsewher e: No [facility]: EHR Solids Control Technician susan: N Practi ce ID: 0001 Magen lable Time: 10:45:00 AM Liz Coleman [facility], [facility] 10:52:24 Pregnanc y test negative [id number] Completed 201406/27/2020 Encounte r for pregnanc y test, result negative ;Recorde d Elsewher e: No Locat ion: [facility] S ource: EHR Solids Control Technician susan: N Practi ce ID: 0001 Magen lable Time: 10:00:00 AM Liz Coleman velvet, [facility] 1 10:52:40 Venereal disease screenin g Completed 201406/27/2020 Screenin g examinat ion for venereal disease; Recorded Elsewher e: No Locat ion: [facility] S ource: EHR Solids Control Technician susan: N Rosanati ce ID: 0001 Magen lable Time: 03:30:00 PM Liz Coleman [facility], [facility] 1 10:53:46 Speciali zed medical examinat ion Completed 201406/27/2020 Other specifie d chlamydi al diseases ;Recorde d Elsewher e: No Locat ion: [facility] S ource: EHR Solids Control Technician susan: N Practi ce ID: 0001 Magen lable Time: 03:30:00 PM Liz Coelman [facility], [facility] 10:53:18 Exposure to sexually transmis sible disorder Completed 201606/27/2020 STD exposure ;Recorde d Elsewher e: No Locat ion: [facility] S ource: EHR Solids Control Technician susan: N Practi ce ID: 0001 Magen lable Time: 03:00:00 PM Liz Coleman [facility], [facility] 10:52:09 Blood leukocyt e number above referenc e range [id number] Completed 201606/27/2020 Elevated white blood cell count, unspecif ied;Remy rded Elsewher e: No Locat ion: [facility] S ource: EHR Solids Control Technician susan: N Practi ce ID: 0001 Magen lable Time: 03:00:00 PM Liz Coleman [facility], [facility] 10:52:21 Vaginola bial hernia Completed 201503/17/2021 Other specifie d noninfla mmatory disorder s of vagina;R ecorded Elsewher e: No Locat ion: [facility] S ource: EHR Solids Control Technician susan: N Practi ce ID: 0001 Magen lable Time: 01:30:00 PM Ara verdin [facility] 11:42:26 Acute vaginiti s [id number] Completed 201503/17/2021 Vaginiti s;Record ed Elsewher e: No Locat ion: [facility] S ource: EHR Solids Control Technician susan: N Ken ce ID: 0001 Magen lable Time: 08:45:00 AM Ara verdin [facility] 11:42:24 Adult health examinat ion Completed 201406/27/2020 ROUTINE MEDICAL EXAM;Rec orded Elsewher e: No Locat ion: [facility] S ource: EHR Solids Control Technician susan: Mario Alberto Rogers ce ID: 0001 Magen lable Time: 02:00:00 PM Liz Coleman [facility] 10:52:02 Replacem ent of intraute rine contrace ptive device Completed 201703/17/2021 Encntr for removal and reinsert ion of uterin contrace p dev;Remy rded Elsewher e: No Locat ion: [facility] S ource: EHR Solids Control Technician susan: Mario Alberto Rogers ce ID: 0001 Magen lable Time: 01:00:00 PM Ara verdin [facility] 11:42:28 Pregnanc y test positive [id number] Completed 201106/27/2020 Pregnanc y examinat ion or test, positive result;R ecorded Elsewher e: No Locat ion: [facility] S ource: EHR Solids Control Technician susan: N Ken ce ID: 0001 Magen lable Time: 10:30:00 AM Liz verdin [facility] 10:52:[address] Concept Completed 201806/27/2020 Encntr for routine child health exam w/o abnormal findings ;Recorde d Elsewher e: No Locat ion: [facility] S ource: EHR Solids Control Technician susan: N Practi ce ID: 0001 Magen lable Time: 11:45:00 AM Liz verdin, [facility] 10:53:07 Leukorrh ea [id number] Completed 201406/27/2020 Leukorrh ea, not specifie d as infectiv e;Record ed Elsewher e: No Locat ion: [facility] S ource: EHR Solids Control Technician susan: N Practi ce ID: 0001 Magen lable Time: 03:30:00 PM Liz verdin, [facility] 10:52:35 Hypereme sis gravidar um with metaboli c disturba nce - not delivere d [id number] Completed 201106/27/2020 Hypereme sis gravidar um with metaboli c disturba nce, antepart um;Pract ice ID: 0001 Liz verdin, [facility] 10:52:14 Primigra shanda [id number] Completed 201106/27/2020 Supervis ion of normal first pregnanc y;Practi ce ID: 0001 Liz verdin, [facility] 10:52:45 Uterine size for dates discrepa ncy [id number] Completed 201106/27/2020 UTERINE SIZE DELTA-ANTE PAR;Prac araceli ID: 0001 Liz verdin, [facility] 10:53:33 anatomy study Completed 201106/27/2020 SCRN ANATMC SURVEY;Shani vazqueztice ID: 0001 Liz verdin, [facility] 10:52:11 Uterine scar from previous surgery in pregnanc y, childbir th and the puerperi um - delivere d [id number] Completed 201106/27/2020 Previous delivery , with delivery , with or without mention of antepart um conditio n;Rosanati ce ID: 0001 Liz verdin [facility] 10:53:30 Single live from singleto n pregnanc y [id number] Completed 201106/27/2020 Mother with single liveborn ;Practic e ID: 0001 Liz Coleman [facility] 10:53:02 Ill-defi yi intestin al infectio n Completed 201106/27/2020 No Show Fee;Prac araceli ID: 0001 Liz Coleman [facility] 10:52:17 Postpart um care Completed 201106/27/2020 Routine postpart um follow-u p;Practi ce ID: 0001 Liz Coleamn [facility], [facility] 10:52:38 Postoper ative follow-u p visit Completed 201106/27/2020 Follow-u p examinat alberto le g other surgery; Practice ID: 0001 Liz Coleman [facility] 10:52:47 Surveill ance of subcutan eous contrace ptive implant Completed 202005/20/2022 Caroline Cooper [facility] 2 15:48:45 Problem Notes None recorded. Procedures Surgical History Date Name Laterality Status Provider Name and Address Organization Details Recorded Time 07/08/19 23 Colposcopy completed BRENTON Barrios- [address], [place], [address], [facility] 07/08/2022 16:50:32 05/25/20 21 Control Implant Insertion completed Ericka Levy MD [address], [place], [address], [facility] 05/26/2021 08:59:30 05/25/20 21 Nexplanon Removal completed Ericka Levy MD [address], [place], [address], [facility] 05/26/2021 08:58:44 05/23/20 21 Colposcopy completed Kelly Velásquez [facility]- [address], [place], [address], [facility] 05/23/2021 13:29:03 05/23/20 21 [facility] 12:51:21 05/23/20 21 Colposcopy completed Caroline Cooper [facility] 05/20/2022 15:50:13 03/18/20 21 Date of Last Pap Smear completed [facility] 05/23/2021 12:50:46 03/20/20 19 section completed [facility] 06/03/2020 14:32:47 04/17/20 12 section completed [facility] 06/03/2020 14:33:16 Imaging Results None recorded. Procedure Notes None recorded. Medical Equipment None Reported. Allergies No known drug allergies Medications Name Sig Start Date Stop Date Status Note LastModified by Organization Details LastModified Time penicilli n V potassium 250 mg tablet TK 1 T PO QID FOR 7 DAYS 06/27 completed Not Available Not Available Not Available naproxen 375 mg tablet TAKE 1 TABLET BY MOUTH TWICE DAILY 05/20 completed Not Available Not Available Not Available ibuprofen 800 mg tablet TAKE 1 TABLET BY MOUTH TWICE DAILY FOR 10 DAYS 05/20 completed Not Available Not Available Not Available promethaz ine 25 mg rectal supposito ry insert 1 supposit ory (25MG) by rectal route every morning prn 05/03 completed Prescrib ed Elsewher e: No Locat ion: [facility] odify By: [email or web address] trick En counter DateTime : 10/14/19 12 03:00:00 PM Not Available Not Available Not Available fluconazo le 200 mg tablet Take 1 tablet on days 1, 4 & 7 for total of 3 doses. 10/18 completed Not Available Not Available Not Available metronida zole 0.75 % (37.5 mg/5 gram) vaginal gel INSERT 1 APPLICAT ORFUL VAGINALL Y EVERY DAY AT BEDTIME FOR 5 NIGHTS 08/03 completed Not Available Not Available Not Available Diflucan 150 mg tablet take 1 tablet by oral route once 11/16 completed Prescrib ed Elsewher e: No Locat ion: [facility] odify By: mae orellana DateTime : 10/22/19 16 10:30:00 AM Not Available Not Available Not Available metronida zole 500 mg tablet TAKE 1 TABLET BY MOUTH TWICE DAILY FOR 7 DAYS 03/17 completed Not Available Not Available Not Available Reglan 10 mg tablet take 1 tablet (10MG) by oral route 4 times every day 30 minutes before meals and at bedtime 05/03 completed Prescrib ed Elsewher e: No Locat ion: [facility] odify By: [email or web address] trick En counter DateTime : 10/14/19 12 03:00:00 PM Not Available Not Available Not Available amoxicill in 500 mg tablet TAKE 1 TABLET BY MOUTH 3 TIMES DAILY FOR 10 DAYS 05/20 completed Not Available Not Available Not Available Macrobid 100 mg capsule take 1 capsule by oral route every 12 hours with food 10/21 completed Prescrib ed Elsewher e: No Locat ion: [facility] odify By: [email or web address] trick En counter DateTime : 08/15/19 16 11:30:00 AM Not Available Not Available Not Available Zofran 4 mg tablet take 1 by Oral route every 6 hours prn for nausea 10/13 completed Prescrib ed Elsewher e: No Locat ion: [facility] odify By: [email or web address] Encount er DateTime : 09/16/19 12 11:16:32 AM Not Available Not Available Not Available methocarb destiny 750 mg tablet TAKE 2 TABLETS ORALLY TID FOR 10 DAYS 06/27 completed Not Available Not Available Not Available hydrocodo ne 7.5 mg-acetam inophen 325 mg tablet TK 1 T PO Q 6 H PRN P 06/27 completed Not Available Not Available Not Available clotrimaz ole-betam ethasone 1 %-0.05 % topical cream apply by topical route 2 times every day for 2 weeks to the affected and surround ing areas of skin in the morning and evening 11/03 completed Prescrib ed Elsewher e: No Locat ion: [facility] odify By: mae Arredondo ter DateTime : 10/22/19 16 10:30:00 AM Not Available Not Available Not Available Vitamin B-6 50 mg tablet take 1 by Oral route every 12 for 30 10/01 completed Prescrib ed Elsewher e: No [facility] odify By: mae Arredondo ter DateTime : 09/03/19 12 01:00:00 PM Not Available Not Available Not Available Vitamin D2 1,250 mcg (50,000 unit) capsule take 1 capsule ([id number] ITS) by oral route every week 05/03 completed Prescrib ed Elsewher e: No Locat ion: [facility] odify By: [email or web address] trick En counter DateTime : 02/23/20 12 10:33:49 AM Not Available Not Available Not Available clotrimaz ole 1 % topical cream apply by topical route 2 times every day to the affected and surround ing areas of skin in the morning and evening 05/03 completed Prescrib ed Elsewher e: No Locat ion: [facility] odify By: [email or web address] trick En counter DateTime : 10/14/19 12 03:00:00 PM Not Available Not Available Not Available Bactrim DS 800 mg-160 mg tablet take 1 tablet by oral route every 12 hours 02/09 completed Prescrib ed Elsewher e: No Locat ion: [facility] odify By: [email or web address] Xavier ncounter DateTime : 09/21/19 17 03:00:00 PM Not Available Not Available Not Available Benadryl Allergy 25 mg tablet take 2 tablet (50MG) by oral route 4 - 6 hours as needed 05/03 completed Prescrib ed Elsewher e: No Locat ion: [facility] odify By: [email or web address] trick En counter DateTime : 09/03/19 12 01:00:00 PM Not Available Not Available Not Available Zithromax 500 mg tablet take 2 tablet by oral route once 10/09 completed Prescrib ed Elsewher e: No Locat ion: [facility] odify By: [email or web address] trick En counter DateTime : 09/14/19 15 11:42:06 AM Not Available Not Available Not Available Pepcid AC 20 mg tablet take 1 tablet (20MG) by oral route 2 times every day 05/03 completed Prescrib ed Elsewher e: No Locat ion: [facility] odify By: [email or web address] trick En counter DateTime : 09/03/19 12 01:00:00 PM Not Available Not Available Not Available Azo 95 mg tablet 11/04 completed Prescrib ed Elsewher e: Yes Loca tion: [facility] odify By: [email or web address] trick En counter DateTime : 09/10/19 15 03:30:00 PM Not Available Not Available Not Available Triveen-D uo DHA 29 mg-1 mg-400 mg oral pack take 2 by Oral route every day 08/26 completed Prescrib ed Elsewher e: No Locat ion: [facility] odify By: [email or web address] Encount er DateTime : 08/27/19 12 10:30:00 AM Not Available Not Available Not Available Venatal Complete DHA 27 mg-1 mg-430 mg tablet and capsule,d elay releas 05/03 completed Prescrib ed Elsewher e: No Locat ion: [facility] odify By: [email or web address] trick En counter DateTime : 08/27/19 12 10:30:00 AM Not Available Not Available Not Available Nexplanon 68 mg subdermal implant Inject by subcutan eous route. 2017 active nexplano n inserted 8 and will need to be removed by 1 Not Available Not Available Not Available PreviDent 5000 Booster Plus 1.1 % dental paste 03/18 completed Not Available Not Available Not Available Nuvessa 1.3 % (65 mg/5 gram) vaginal gel Insert 1 applicat orful every day by vaginal route for 1 day. 08/03 completed Not Available Not Available Not Available Vitals Date Recorded Systolic blood pressure Diastolic blood pressure Provider Name and Address Organization Details Last Updated DateTime 07/08/2022 130 mm[Hg] 80 mm[Hg] Kelly Velásquez, [facility]- [address], [place], [address], [facility] 07/08/2022 16:20:31 Date Recorded Body height Body mass index (BMI) Body weight Provider Name and Address Organization Details Last Updated DateTime 07/08/2022 169.55 cm 29 kg/m2 05688 g [facility] 07/08/2022 16:14:24 Date Recorded Body height Body mass index (BMI) Body weight Systolic blood pressure Diastolic blood pressure Provider Name and Address Organization Details Last Updated DateTime 08/03/2023 169.55 cm 29.1 kg/m2 31980.43 g 126 mm[Hg] 84 mm[Hg] [facility] 18:50:02 Date Recorded Systolic blood pressure Diastolic blood pressure Provider Name and Address Organization Details Last Updated DateTime 10/18/2022 122 mm[Hg] 80 mm[Hg] Kelly Velásquez [facility] [address], [place], [address], [facility] 10/18/2022 11:15:40 Date Recorded Body height Body mass index (BMI) Body weight Provider Name and Address Organization Details Last Updated DateTime 10/18/2022 169.55 cm 28.2 kg/m2 50345.03 g Kayy Bradley [facility] 10/18/2022 11:02:29 Date Recorded Body height Body mass index (BMI) Body weight Systolic blood pressure Diastolic blood pressure Provider Name and Address Organization Details Last Updated DateTime 05/20/2022 169.55 cm 28.1 kg/m2 72032.44 g 110 mm[Hg] 68 mm[Hg] Caroline Cooper [facility] 2 17:43:56 Date Recorded Body height Body mass index (BMI) Body weight Systolic blood pressure Diastolic blood pressure Provider Name and Address Organization Details Last Updated DateTime 05/25/2021 170.18 cm 28 kg/m2 75174.03 g 125 mm[Hg] 85 mm[Hg] Ledy Palomo [facility] 18:12:29 Social History Question Answer Notes LastModified by Organizat ion Details LastModified Time Tobacco Smoking Status Never Smoker Liz verdin, [facility] 05/23/2021 12:49:52 Do You Have An Advance Directive? No Information n ot available 05/23/2021 How Many Years Have You Consumed Alcohol? 4 [email or web address] Information not available 05/23/2021 Are You Blind Or Do You Have Difficulty Seeing? No [email or web address] Information n ot available 05/23/2021 What Is Your Level Of Caffeine Consumption? Occasional [email or web address] Information not available 05/23/2021 How Much Tobacco Do You Chew? None [email or web address] Information not available 05/23/2021 In The 14 Days Before Symptom Onset, Have You Had Close Contact With A Laboratory-confirm ed COVID-19 While That Case Was Ill? No [email or web address] Information n ot available 05/23/2021 In The 14 Days Before Symptom Onset, Have You Had Close Contact With A Person Who Is Under Investigation For COVID-19 While That Person Was Ill? No [email or web address] Information not available 05/23/2021 Have You Been To An Area Known To Be High Risk For COVID-19? No [email or web address] Information not available 05/23/2021 Are You Deaf Or Do You Have Serious Difficulty Hearing? No [email or web address] Information not available 05/23/2021 What Type Of Diet Are You Following? REGULAR Information n ot available 05/23/2021 What Is The Highest Grade Or Level Of School You Have Completed Or The Highest Degree You Have Received? [id number] Information not available 05/23/2021 Are There Any Guns Present In Your Home? No [email or web address] Information not available 05/23/2021 What Was The Date Of Your Most Recent Tobacco Screening? 05/23/2021 [email or web address] Information not available 05/23/2021 Do You Use Protection During Sex? Always [email or web address] Information not available 05/23/2021 Do You Use Your Seat Belt Or Car Seat Routinely? Yes [email or web address] Information not available 05/23/2021 Do You Have Smoke And Carbon Monoxide Detectors In Your Home? Yes [email or web address] Information not available 05/23/2021 How Much Tobacco Do You Smoke? No [email or web address] Information not available 06/27/2020 Do You Use Sunscreen Routinely? No [email or web address] Information not available 05/23/2021 Have You Used IV Drugs? No [email or web address] Information not available 05/23/2021 Do You Have Difficulty Walking Or Climbing Stairs? No Information not available 05/20/2022 Sex: Unknown Functional Status Question Answer Note LastModified by Organizat ion Details LastModified Time Do you use any illicit or recreational drugs? No [email or web address] Information not available 05/23/2021 What is your level of alcohol consumption? Occasional [email or web address] Information not available 06/27/2020 Do you or have you ever used smokeless tobacco? Never used smokeless tobacco [email or web address] Information not available 05/23/2021 Are you able to walk? [email or web address] Information not available 05/23/2021 Are you able to care for yourself? Yes Information not available 05/20/2022 Do you have difficulty dressing or bathing? No Information not available 05/20/2022 Do you or have you ever used e-cigarettes or vape? Never used electronic cigarettes [email or web address] Information not available 05/23/2021 What is your exercise level? Occasional [email or web address] Information not available 06/27/2020 Mental Status Question Answer Note LastModified by Organization D etails LastModified Time Do you feel stressed (tense, restless, nervous, or anxious, or unable to sleep at night)? [id number] Information not available 05/23/2021 Family History Relationship Description Onset Age of this Age Resolved Age Notes LastModified by Organization Details LastModified Time Father No current problems or disability [email or web address] Not available 03/17 11:46:36 Mother No current problems or disability [email or web address] Not available 03/17 11:46:36 Medical History Condition Response Allergies (Food, seasonal, environmental ) N Other Y Breast Cancer N Drug/Latex Allergies/Reactions N Blood Transfusion N Dermatologic Disorders N Lung Disease N Defects or Inherited Disease N Breast Problem N Gestational Diabetes N Hematologic disorders N Anesthesia Complications N History of STI Y Deep Vein Thrombosis N Polycystic ovary syndrome N Anxiety Disorder N Autoimmune disease N Arthritis N Infertility N Polyps N Acid Reflux (GERD) N History of abnormal pap Y Cancer N Stroke N Varicosities N Neurologic/Epilepsy N Endometriosis N High Cholesterol N Headaches N Fibromyalgia N Kidney Disease N Heart Problems N Kidney or Bladder Problems N Thyroid Problems N GI Problems N Eating Disorder N Anemia N Art (IVF or FET) N Psychiatric Illness N Ovarian Cancer N Diabetes N Pulmonary (TB, Asthma) N Hepatitis/Liver Disease N No Past Medical History N Eczema N Urinary Tract Infection N Abuse/Domestic Violence N Asthma N Trauma/Violence N Depression/ depression N Heart Disease N Pre-Eclampsia N Hypertension N Osteoporosis N Thrombophilias N Gynecological History Statement/Question Response Abnormal Pap Y Date of Last Mammogram Flow Moderate Date of LMP 07/09/2023 On BCP's at Conception? N N Was last menstrual period normal Y STIs/STDs Y HPV Vaccine N Colposcopy 05/23/2021 Current Control Method Implant Age at First Child 17 Are cycles usually normal Y Most Recent Bone Density Sexually Active? Y Menses Monthly Y Age of first menstrual cycle 16 Date of Last Pap Smear 03/18/2021 Sexual Problems? N LMP Approximate N Obstetrics History GPAL:G 2 P 2 0 0 2 Type Value Full Term 2 Living 2 Total 2 Past Encounters Encounter ID Performer Location Encounter Start Date Encounter Closed Date Diagnosis/Indication Diagnosis SNOMED-CT Code Diagnosis ICD10 Code Diagnosis Note [id number] Tran PerezLEANNE [facility] [address],[place] [address] 06/27/2020 10:38:32 06/27/2020 11:32:35 Vaginitis 53062742 N76.0 [id number] Kelly Velásquez [facility] [address],[place] [address] 08/08/2020 14:20:29 08/11/2020 11:38:50 Vaginitis 08602963 N76.0 Suspect BV/yeast. Treatment & cx's sent to confirm. Time spent in visit is a total of 15mins with at least 50% of visit consisting of counseling and review of plan of care. Additional precaution ilda measures were taken to minimize potential exposure to the Covid-19 virus during this patient s visit, including available hand inspector conveyor line upon arrive, temperatur e check and being asked a series of screening questions. All staff wore face coverings during this encounter, as well as provided additional cleaning and sanitizing of all surfaces, including countertop s, pens, chairs, door handles, light switches, etc, prior to and following the patient s visit. [id number] Ericka Levy MD [facility] [address],[place] [address] 03/18/2021 13:58:59 03/18/2021 14:37:54 Gynecologic examination 67651012 Z01.419 Surveillan ce of subcutaneous contraceptive implant 136964955 Z30.46 [id number] Kelly Velásquez [facility] [address],[place] [address] 05/23/2021 11:43:48 05/25/2021 13:00:50 Low grade squamous intraepithelial lesion on cervical Papanicolaou smear 7021873048 9105 R87.612 See procedure notes.Post -procedure instructio ns reviewed with understand ing verbalized .Will contact with results & next steps in plan of care. Contracept ion care management 932847490 Z30.9 Continues to have AUB with current nexplanon which is at it's 3yrs expiration karolina.Has been having to take OCP's to get AUB stop for >6mos.It is not heavy but the spotting is so random & periods are starting to return.Wis hes to have current Nexplanon removed & a new one reinserted .Will schedule.S ample pack SLYND given to help with spotting until new device can be replaced. [id number] Kelly Velásquez , [facility] [address],[place] [address] 05/20/2022 17:24:42 05/21/2022 15:39:33 Gynecologic examination 19040079 Z01.419 Take Calcium with Vitamin D 1200mg daily if not receiving in daily diet. It is strongly advised to have an annual flu shot and up can obtain at most pharmacies . If you have not had a TDap shot in the last 10 years you should obtain one as well. Discussed with patient & provided with informatio n regarding Gardisil vaccine to prevent the 4 strains for HPV that cause cervical cancer if under age 26. Encourage safe sexual practices, to use condoms and limit partners if not already in a monogamous relationsh ip. Do monthly self breast exams. Have mammogram yearly or every other year depending on family history. BRCA testing is now available for patients with strong genetic history of female cancer. If interested contact the office. Engage in daily exercise of low impact aerobic exercise 45-60 minutes 4-5 times weekly. Avoid tobacco and illicit drugs as well as using moderation with alcohol intake less than 1-2 8 oz beverages daily. This lifestyle behavior pattern will lead to less health conditions and longer life span. If BMI greater than 25 weight watchers or dietary consult advised. Patient received above instructio ns, and questions have been answered. If you have any questions please call or respond to this email. Patient was made aware of the patient portal and may obtain a paper copy of today's plan if desired. Pap/hpv sent (previous pap LGSIL) STD Screen sent Genetic Screen discussed Colon Screen na Dexa Screen na Routine Labs PCPMammo ordered Vaginitis 57115039 N76.0 Abn d/c with faint odor on examAlso brownish spotting lately--if does not resolve call & schedule for US.STD sentSuspec t BVRx sent Counseled on medication R/B's, Most common side effects, & use. All questions [place]. [id number] Ericka Levy MD [facility] [address],[facility] [place] [address] 05/25/2021 17:58:05 05/26/2021 12:13:52 Implantation of subcutaneous contraceptive 240586106 Z30.9 Removal of subcutaneous contraceptive 855989457 Z30.46 [id number] Kelly Velásquez [facility] [address],[place] [address] 07/08/2022 16:02:43 07/08/2022 17:05:15 Low grade squamous intraepithelial lesion on cervical Papanicolaou smear 7943114367 9105 R87.612 See procedure notes.Post -procedure instructio ns reviewed with understand ing verbalized .Will contact with results & next steps in plan of care. Pap/hpv 2020--LGSI L (same on Colpo) Counseled on Pap/HPV guidelines /Testing/R esults with understand ing verbalized .All questions answered to patient satisfacti on. Booklet & additional resources regarding pap smear/HPV/ Pap results given. https://ww w.cancer.g ov/types/c ervical/un derstandin g-abnormal -hpv-and-p ap-test-re sults/unde rstanding- cervical-c hanges.pdf [id number] Kelly Velásquez [facility] [address],[facility] [place] [address] 10/18/2022 10:55:41 10/18/2022 11:32:50 Vaginitis 21246390 N76.0 Will send vag cx/std swab and await return of results prior to treating.p atient is in agreement with this plan.No further questions. Counseled on Vaginitis issues. Time spent in visit is a total of 15 mins with at least 50% of visit consisting of counseling and review of plan of care. [id number] Kelly Velásquez [facility] [address] [address] 08/03/2023 18:43:43 08/11/2023 02:41:31 Gynecologic examination 76060840 Z11.8 Z11.3 Take Calcium with Vitamin D 1200mg daily if not receiving in daily diet. It is strongly advised to have an annual flu shot and up can obtain at most pharmacies . If you have not had a TDap shot in the last 10 years you should obtain one as well. Discussed with patient & provided with informatio n regarding Gardisil vaccine to prevent the 4 strains for HPV that cause cervical cancer if under age 26. Encourage safe sexual practices, to use condoms and limit partners if not already in a monogamous relationsh ip. Do monthly self breast exams. Have mammogram yearly or every other year depending on family history. BRCA testing is now available for patients with strong genetic history of female cancer. If interested contact the office. Engage in daily exercise of low impact aerobic exercise 45-60 minutes 4-5 times weekly. Avoid tobacco and illicit drugs as well as using moderation with alcohol intake less than 1-2 8 oz beverages daily. This lifestyle behavior pattern will lead to less health conditions and longer life span. If BMI greater than 25 weight watchers or dietary consult advised. Patient received above instructio ns, and questions have been answered. If you have any questions please call or respond to this email. Patient was made aware of the patient portal and may obtain a paper copy of today's plan if desired. Pap/hpv sent (previous pap LGSIL)STD Screen sentGeneti c Screen discussedC olon Screen naDexa Screen naRoutine Labs PCPMammo ordered Adult heal th examination 730226508 Z00.00 Health Concerns Section Related Observation LastModified by Organization Detai ls LastModified Time None Recorded Concern Status LastModified by Organization Details LastModified Time None Recorded Advance Directives Directive N: Payers Encounter Date Sequence Insurance Name Policy Number Policy Branch Covered Member ID Branch Member ID Guarantor Name 05/25/2021 1 [facility] ON OR AFTER 12/18/20 (MEDICAID REPLACEMENT - HMO) Neha Flood [id number] Neha Flood 05/20/2022 1 [facility] ON OR AFTER 12/18/20 (MEDICAID REPLACEMENT - HMO) Neha Flood [id number] Neha Flood 07/08/2022 1 [facility] ON OR AFTER 12/18/20 (MEDICAID REPLACEMENT - HMO) Neha Flood [id number] Neha Flood 10/18/2022 1 [facility] ON OR AFTER 12/18/20 (MEDICAID REPLACEMENT - HMO) Neha Flood [id number] Neha Flood 08/03/2023 1 [facility] ON OR AFTER 12/18/20 (MEDICAID REPLACEMENT - HMO) Neha Flood [id number] Neha Flood Notes Date Note Type Note Provider Name and Address Organization Details Recorded Time 05/25/2021 text/html Here for nexplan on removal and reinsert, placed 02/2021 Ericka Levy MD [address], [place], [address], [facility] 05/26/2021 09:00:44 05/20/2022 text/html Annual GYNReport ed bypatient.Menstrual cycle:Normal menses Urinary symptoms:No hematuria; No incontinence Vulva:No genital lesion Vagina:Foul-smelling ;Yellow-green, thick;Vaginal itching Breast:No breast pain; No breast lump; No nipple discharge Current Contraception:Satisf ied with current contraception; Subdermal contraceptive implant Sexual complaints:No sexual complaints; No pain during intercourse; Normal libido Menopausal Symptoms:No menopausal symptoms; Normal vaginal lubrication Psychological symptoms:No depression; No anxiety; No PMDD Preventive measures:Encourage self breast examination; Encourage regular exercise; Encourage no tobacco use; Encourage regular mammograms starting age 40; Followed with yearly pap smears BRENTON Barrios- [address], [place], [address], [facility] 05/24/2022 19:47:03 10/18/2022 text/html Vaginal/Vulvar ProblemReported bypatient.Notes:Here today with sx's of vag d/c & fishy odor.Would like updated STD screen swab.. Neg pain of abd/pelvis/flankNeg urinary sx'sNeg GI sx'sNeg N/V/F/C/DNeg Vag irritation, itching Kelly Velásquez [facility] [address], [place], [address], [facility] 10/18/2022 11:18:39 08/03/2023 text/html Annual GYNReport ed bypatient.Menstrual cycle:Normal menses Urinary symptoms:No hematuria; No incontinence Vulva:No genital lesion Vagina:Normal vaginal discharge Breast:No breast pain; No breast lump; No nipple discharge Current Contraception:Satisf ied with current contraception; Subdermal contraceptive implant Sexual complaints:No sexual complaints; No pain during intercourse; Normal libido Menopausal Symptoms:No menopausal symptoms; Normal vaginal lubrication Psychological symptoms:No depression; No anxiety; No PMDD Preventive measures:Encourage self breast examination; Encourage regular exercise; Encourage no tobacco use; Encourage regular mammograms starting age 40; Followed with yearly pap smears Kelly Velásquez [facility] [address], [place], [id number], [facility] 08/10/2023 14:27:09 OBGyn Episode Ob Episode Information Episode Created Date Number of Fetuses Patient Bloodtype Patient rh Status Prepregnancy Weight lbs Domestic Partner Domestic Partner Phone Father Name Network Intelligence Analyst Status 06/03/20 20 1 CLOSED Fetus Data First Name Last Name Admitted to NICU Weight (g) Sex Living Outcome Pediatric Complications Fetus ID Race Codes Race Delivery Type 3175.14 4 M Full Term [id number] Repeat Zak Calculation Initial Zak Date Initial Exam Date Initial Exam Provider Initial Ultrasound Date Last Menstrual Period Date Ultra Sound Weeks Gestation 0 Eighteen To Twenty Week Zak Update Ultra Sound Date Fundal Height At Umbil Quickening Date Ultra Sound Latest Weeks Gestation Final Zak Confirmed By Final Zak Confirmed Date Final Zak Date Ultra Sound Latest Days Gestation 0 0 Menstrual History Last Menstrual Date Menses Monthly On Bcp Conception Prior Menses Frequency Hcg Plus Date Menarche Onset Age Delivery Information Delivery Date Delivery Type Labor Anesthesia Weeks Gestation Incision Type Labor Labor Length Hrs Delivered By Post Complications Tubal Sterilization Discharge Date Comments 9 40 Discharge Information Feeding Method Contraceptive Method Maternal HG B and HCT Levels Ob Episode Information Episode Created Date Number of Fetuses Patient Bloodtype Patient rh Status Prepregnancy Weight lbs Domestic Partner Domestic Partner Phone Father Name Network Intelligence Analyst Status 06/03/20 20 1 CLOSED Fetus Data First Name Last Name Admitted to NICU Weight (g) Sex Living Outcome Pediatric Complications Fetus ID Race Codes Race Delivery Type 3855.53 2 M Full Term [id number] Primary Zak Calculation Initial Zak Date Initial Exam Date Initial Exam Provider Initial Ultrasound Date Last Menstrual Period Date Ultra Sound Weeks Gestation 0 Eighteen To Twenty Week Zak Update Ultra Sound Date Fundal Height At Umbil Quickening Date Ultra Sound Latest Weeks Gestation Final Zak Confirmed By Final Zak Confirmed Date Final Zak Date Ultra Sound Latest Days Gestation 0 0 Menstrual History Last Menstrual Date Menses Monthly On Bcp Conception Prior Menses Frequency Hcg Plus Date Menarche Onset Age Delivery Information Delivery Date Delivery Type Labor Anesthesia Weeks Gestation Incision Type Labor Labor Length Hrs Delivered By Post Complications Tubal Sterilization Discharge Date Comments 2 38 Discharge Information Feeding Method Contraceptive Method Maternal HG B and HCT Levels
[2024-11-14 18:08] VITALS: BP 137/90; PULSE 91; RESP 16; TEMP 36.4; O2SAT 98
--- NOTE | 2024-11-14 18:16 | ECG_ITS ---
Test Date: 2024-11-14 18:11:31 Measurements Intervals [place] Rate: 87 P: 64 CO: 135 QRS: 51 QRSD: 85 T: 43 QT: 321 QTc: 386 Interpretive Statements SINUS RHYTHM WITH SINUS ARRHYTHMIA POSSIBLE LEFT ATRIAL ENLARGEMENT [-0.1mV P WAVE IN V1/V2] No previous ECG available for comparison Electronically Signed On 11-15-2024 15:15:31 CDT by Ronald Ornelas M.D.
--- NOTE | 2024-11-14 18:18 | ED_ITS ---
HPI - Chest Pain General Chief Complaint: Chest Pain <Christie Mireles PA-C - Last Filed: 11/15/24 10:27> Stated Complaint: CHEST PAIN <Christie Mireles PA-C - Last Filed: 11/15/24 10:27> Time Seen by Provider: 11/14/24 18:18 <Christie Mireles PA-C - Last Filed: 11/15/24 10:27> Focused HPI: This is a 34 year old female that presents to the ER for pleuritic chest pain. Reports she is coughing up blood tinged sputum for several months. Over the weekend she started to have chest pain. She has also had back pain. Reports shortness of breath. Report history of PE. She is not currently on anticoagulation. Denies fevers. GENERAL: Well-appearing, well-nourished, and in no acute distress. HEAD: Normocephalic, atraumatic. CHEST: Clear to auscultation. ?No respiratory distress. HEART: Regular rate and rhythm.? NEURO: ?Alert and oriented x3. Patient screened in triage and initial orders placed.? ?Additional care and disposition to be based upon?diagnostic testing and treatment. <Christie Mireles PA-C - Last Filed: 11/15/24 10:27> History of Present Illness HPI narrative: I agree with the assessment and documentation by Christie Mireles PA-C. < Frieda Jacob APRN - Last Filed: 11/15/24 01:21> Related Data Allergies/Adverse Reactions: Allergies Allergy/AdvReac Type Severity Reaction Status Date / Time morphine AdvReac Rash Verified 11/14/24 22:46 <Christie Mireles PA-C - Last Filed: 11/15/24 10:27> Review of Systems 2 Review of Systems: All systems reviewed & are unremarkable except as noted in HPI and below <Frieda Jacob APRN - Last Filed: 11/15/24 01:21> PMFSH Past Medical History Medical History: Medical History Pulmonary embolism <Christie Mireles PA-C - Last Filed: 11/15/24 10:27> Surgical History Surgical History: Surgical History No pertinent past surgical history <Christie Mireles PA-C - Last Filed: 11/15/24 10:27> Social History Social History: Social History Smoking status: Never smoker <Christie Mireles PA-C - Last Filed: 11/15/24 10:27> Exam 2 Narrative: GENERAL: Well appearing, well-nourished, non-toxic, in no acute distress. HEAD: Normocephalic, atraumatic. NECK: Supple. No adenopathy, no masses. RESPIRATORY: Airway patent, respirations nonlabored. Clear to auscultation bilaterally, no rales, rhonchi, wheezing. CARDIOVASCULAR: Regular rate and rhythm without murmurs, rubs, or gallops. Peripheral pulses 2+ and equal bilaterally. ABDOMINAL: Soft, nontender, nondistended, no hepatosplenomegaly. Normoactive BS. MUSCULOSKELETAL: Moves all extremities. Strength/ROM intact without gross deformities. SKIN: Warm, dry, normal color. No rashes. NEURO: A&O X3. Speech clear. Cranial nerves II-XII intact. No ataxic movements. PSYCHIATRIC: Appropriate mood and affect. Normal interaction. <Frieda Jacob APRN - Last Filed: 11/15/24 01:21> Course Vital Signs Vital signs: Vital Signs Temperature 97.5 F L 11/14/24 18:08 Pulse Rate 91 11/14/24 18:08 Respiratory Rate 16 11/14/24 18:08 Blood Pressure 137/90 11/14/24 18:08 Pulse Oximetry 98 11/14/24 18:08 Temperature 99 F 11/14/24 21:06 Pulse Rate 66 11/15/24 01:40 Respiratory Rate 15 11/15/24 01:40 Blood Pressure 102/64 11/15/24 01:40 Pulse Oximetry 100 11/15/24 01:40 Oxygen Delivery Room Air 11/14/24 22:44 <Christie Mireles PA-C - Last Filed: 11/15/24 10:27> Vital Signs Temperature 97.5 F L 11/14/24 18:08 Pulse Rate 91 11/14/24 18:08 Respiratory Rate 16 11/14/24 18:08 Blood Pressure 137/90 11/14/24 18:08 Pulse Oximetry 98 11/14/24 18:08 Temperature 99 F 11/14/24 21:06 Pulse Rate 66 11/15/24 01:40 Respiratory Rate 15 11/15/24 01:40 Blood Pressure 102/64 11/15/24 01:40 Pulse Oximetry 100 11/15/24 01:40 Oxygen Delivery Room Air 11/14/24 22:44 <Frieda Jacob APRN - Last Filed: 11/15/24 01:21> MDM - Chest Pain MDM Narrative Medical decision making narrative: This is a 34 year old female that presents to the ER for pleuritic chest pain. Reports she is coughing up blood tinged sputum for several months. Over the weekend she started to have chest pain. She has also had back pain. Reports shortness of breath. Report history of PE. She is not currently on anticoagulation. Denies fevers. Labs Ordered: CBC, CMP, PTT, INR, troponin, lipase Imaging Ordered: Chest x-ray, CTA chest PE protocol Medications Ordered: None necessary Results: Patient's CT scan indicates 1. No pulmonary embolism. 2. No acute cardiopulmonary pathology. 3. Cholelithiasis. Diagnosis: Seasonal allergies, costochondritis Patient Education/Shared MDM: Results of lab work and imaging shared with patient. Pt endorses continued pleuritic pain. Will give pt a dose of Toradol here before she leave. Patient strongly advised to maintain hydration status upon discharge and follow-up with their PCP as soon as possible. She will be discharged home with a prescription for Claritin and Tessalon Pearles to see if this helps decrease her mucus production. Strict return precautions provided. Patient verbalized understanding and is in agreement with plan. Vital signs stable at time of discharge. All questions answered. <Frieda Jacob APRN - Last Filed: 11/15/24 01:21> Differential Diagnosis Differential diagnosis: Likely pneumothorax, atypical chest pain, costochondritis, chest pain and other (Pulmonary embolism, pneumonia) <Frieda Jacob APRN - Last Filed: 11/15/24 01:21> Lab Data Attestation: I reviewed the patient's lab results. <Frieda Jacob APRN - Last Filed: 11/15/24 01:21> Result diagrams: 11/14/24 18:20 11/14/24 18:20 <Christie Mireles PA-C - Last Filed: 11/15/24 10:27> Labs: Lab Results 11/14/24 11/14/24 11/14/24 Range/Units 18:20 21:02 22:59 WBC 6.5 (4.5-10.0) K/mm3 RBC 4.73 (4.2-5.4) M/mm3 Hgb 13.1 (12.0-15.0) g/dL Hct 42.3 (37.0-47.0) % MCV 89.4 (80-100) fl MCH 27.7 (26-34) pg MCHC 31.0 L (32-36) g/dl RDW 13.3 (11.5-14.5) % Plt Count 399 H (150-375) k/mm3 MPV 9.3 (7.4-10.4) fl Immature Gran % (Auto) 0.3 (0-0.5) % Neut % (Auto) 48.7 (45.5-73.1) % Lymph % (Auto) 40.8 (18.3-44.2) % [place] % (Auto) 8.2 (2.6-8.5) % Eos % (Auto) 1.4 (0-4.4) % Baso % (Auto) 0.6 (0.2-1.2) % Lymph # (Auto) 2.64 (0.9-3.2) K/mm3 [place] # (Auto) 0.5 (0.1-0.6) K/mm3 Eos # (Auto) 0.1 (0-0.3) K/mm3 Baso # (Auto) 0.0 (0.0-0.1) K/mm3 Abs Immat Gran (auto) 0.02 (0.00-0.031) K/mm3 Absolute Neuts (auto) 3.2 (1.3-6.7) K/mm3 Absolute Nucleated RBC 0.000 (0.0-0.012) K/mm3 Nucleated RBC % 0.0 (0.0-0.2) % PT 12.7 (11.1-14.7) Seconds INR 0.9 APTT 28.9 (22.3-36.8) Seconds Sodium 138 (137-145) mmol/L Potassium 4.4 (3.4-5.0) mmol/L Chloride 103 (98-107) mmol/L Carbon Dioxide 27 (22-30) mmol/L Anion Gap 8 (4-12) mmol/L BUN 9 (7-17) mg/dL Creatinine 0.91 (0.7-1.0) mg/dL Estim Creat Clear Calc 79 ml/min Estimated GFR > 60 (59 - ) Glucose 82 (65-110) mg/dL Calcium 9.2 (8.4-10.2) mg/dL Total Bilirubin 0.6 (0.2-1.3) mg/dL AST 26 (14-36) U/L ALT 13 (6-35) U/L Alkaline Phosphatase 45 (38-126) U/L Troponin I < 0.012 < 0.012 (0.000-0.034) ng/mL Total Protein 8.0 (6.3-8.2) g/dL Albumin 4.4 (3.5-5.1) g/dL Lipase 173 (23-300) U/L POC Urine HCG, Qual Negative (Negative) <Christie Mireles PA-C - Last Filed: 11/15/24 10:27> Lab Results 11/14/24 11/14/24 11/14/24 Range/Units 18:20 21:02 22:59 WBC 6.5 (4.5-10.0) K/mm3 RBC 4.73 (4.2-5.4) M/mm3 Hgb 13.1 (12.0-15.0) g/dL Hct 42.3 (37.0-47.0) % MCV 89.4 (80-100) fl MCH 27.7 (26-34) pg MCHC 31.0 L (32-36) g/dl RDW 13.3 (11.5-14.5) % Plt Count 399 H (150-375) k/mm3 MPV 9.3 (7.4-10.4) fl Immature Gran % (Auto) 0.3 (0-0.5) % Neut % (Auto) 48.7 (45.5-73.1) % Lymph % (Auto) 40.8 (18.3-44.2) % [place] % (Auto) 8.2 (2.6-8.5) % Eos % (Auto) 1.4 (0-4.4) % Baso % (Auto) 0.6 (0.2-1.2) % Lymph # (Auto) 2.64 (0.9-3.2) K/mm3 [place] # (Auto) 0.5 (0.1-0.6) K/mm3 Eos # (Auto) 0.1 (0-0.3) K/mm3 Baso # (Auto) 0.0 (0.0-0.1) K/mm3 Abs Immat Gran (auto) 0.02 (0.00-0.031) K/mm3 Absolute Neuts (auto) 3.2 (1.3-6.7) K/mm3 Absolute Nucleated RBC 0.000 (0.0-0.012) K/mm3 Nucleated RBC % 0.0 (0.0-0.2) % PT 12.7 (11.1-14.7) Seconds INR 0.9 APTT 28.9 (22.3-36.8) Seconds Sodium 138 (137-145) mmol/L Potassium 4.4 (3.4-5.0) mmol/L Chloride 103 (98-107) mmol/L Carbon Dioxide 27 (22-30) mmol/L Anion Gap 8 (4-12) mmol/L BUN 9 (7-17) mg/dL Creatinine 0.91 (0.7-1.0) mg/dL Estim Creat Clear Calc 79 ml/min Estimated GFR > 60 (59 - ) Glucose 82 (65-110) mg/dL Calcium 9.2 (8.4-10.2) mg/dL Total Bilirubin 0.6 (0.2-1.3) mg/dL AST 26 (14-36) U/L ALT 13 (6-35) U/L Alkaline Phosphatase 45 (38-126) U/L Troponin I < 0.012 < 0.012 (0.000-0.034) ng/mL Total Protein 8.0 (6.3-8.2) g/dL Albumin 4.4 (3.5-5.1) g/dL Lipase 173 (23-300) U/L POC Urine HCG, Qual Negative (Negative) <Frieda Jacob APRN - Last Filed: 11/15/24 01:21> Imaging Data Attestation: I personally reviewed and interpreted this imaging study as follows: < Frieda Jacob APRN - Last Filed: 11/15/24 01:21> Radiologist's impression: Impressions Chest X-Ray 11/14/24 19:37 IMPRESSION: No acute cardiopulmonary pathology. Chest CTA 11/14/24 23:56 IMPRESSION: 1. No pulmonary embolism. 2. No acute cardiopulmonary pathology. 3. Cholelithiasis. <Frieda Jacob APRN - Last Filed: 11/15/24 01:21> Critical Care Time Critical Care Time Critical Care Time: No <Christie Mireles PA-C - Last Filed: 11/15/24 10:27> Discharge Plan Discharge Clinical Impression: Costalchondritis, Atypical chest pain, Congestion of upper respiratory tract <Christie Mireles PA-C - Last Filed: 11/15/24 10:27> Patient Disposition: Home <CORA Solorio Last Filed: 11/15/24 10:27> Condition: Stable <CORA Solorio Last Filed: 11/15/24 10:27> Instructions: Antibiotic Form, Costochondritis (ED) <CORA Solorio Last Filed: 11/15/24 10:27> Additional Instructions: Please return to the ER with any worsening symptoms. Follow-up with primary care provider as soon as possible. Take all medications as prescribed, including regularly scheduled medications. You may use Tylenol and ibuprofen together for pain relief. <CORA Solorio Last Filed: 11/15/24 10:27> Patient Language: Latvian <CORA Solorio Last Filed: 11/15/24 10:27> Prescriptions: New loratadine [Claritin] 10 mg tablet 10 mg PO DAILY Qty: 60 0RF promethazine-DM 6.25-15 mg/5 mL syrup 5 ml PO Q4-6H PRN (Reason: cough) Qty: 473 0RF No Action naproxen 375 mg tablet 375 mg PO BID Qty: 14 0RF <Christie Mireles PA-C - Last Filed: 11/15/24 10:27> Follow-up/Referrals: PHYSICIAN,REGULATORY CONSULTANT [Primary Care Provider] - Asher Jara MD [Physician] - (primary care) <Christie Mireles PA-C - Last Filed: 11/15/24 10:27> Stand Alone Forms: Work/School Release IP <Christie Mireles PA-C - Last Filed: 11/15/24 10:27> Time of Disposition: 01:21 <Christie Mireles PA-C - Last Filed: 11/15/24 10:27> 01:21 <Frieda Jacob APRN - Last Filed: 11/15/24 01:21>
[2024-11-14 18:27] LABS: Basophils Percent Auto 0.6 % (0.2-1.2); Eosinophils Absolute Auto 0.1 K/mm3 (0-0.3); Eosinophils Percent Auto 1.4 % (0-4.4); Hematocrit 42.3 % (37.0-47.0); Hemoglobin 13.1 g/dL (12.0-15.0); Immature Granulocyte Absolute 0.02 K/mm3 (0.00-0.031); Immature Granulocyte Percent A 0.3 % (0-0.5); Lymphocytes Absolute Auto 2.64 K/mm3 (0.9-3.2); Lymphocytes Percent Auto 40.8 % (18.3-44.2); Mean Corpuscular Hemoglobin 27.7 pg (26-34); Mean Corpuscular Volume 89.4 fl (80-100); Mean Platelet Volume 9.3 fl (7.4-10.4); Monocytes Absolute Auto 0.5 K/mm3 (0.1-0.6); Monocytes Percent Auto 8.2 % (2.6-8.5); Neutrophils Absolute Auto 3.2 K/mm3 (1.3-6.7); Neutrophils Percent Auto 48.7 % (45.5-73.1); Platelet Count Result 399 k/mm3 (150-375); Red Blood Count 4.73 M/mm3 (4.2-5.4); Red Cell Distribution Width 13.3 % (11.5-14.5); White Blood Count 6.5 K/mm3 (4.5-10.0)
[2024-11-14 18:37] LABS: Alanine Aminotransferase 13 U/L (6-35); Albumin Level 4.4 g/dL (3.5-5.1); Alkaline Phosphatase 45 U/L (38-126); Anion Gap 8 mmol/L (4-12); Aspartate Amino Transferase 26 U/L (14-36); Bilirubin,Total 0.6 mg/dL (0.2-1.3); Blood Urea Nitrogen 9 mg/dL (7-17); Calcium 9.2 mg/dL (8.4-10.2); Carbon Dioxide 27 mmol/L (22-30); Chloride 103 mmol/L (98-107); Estimated CRCL calculation 79 ml/min; Estimated Glomerular Filt Rate > 60; Glucose 82 mg/dL (65-110); INR 0.9; Lipase 173 U/L (23-300); Potassium 4.4 mmol/L (3.4-5.0); Prothrombin Time 12.7 Seconds (11.1-14.7); Sodium 138 mmol/L (137-145)
[2024-11-14 18:39] LABS: Partial Thromboplastin Time 28.9 Seconds (22.3-36.8)
[2024-11-14 18:48] LABS: Troponin I < 0.012 ng/mL (0.000-0.034)
--- NOTE | 2024-11-14 21:02 | ECG_ITS ---
Test Date: 2024-11-14 21:02:58 Measurements Intervals [place] Rate: 68 P: 58 [place]: 148 QRS: 48 QRSD: 89 T: 43 QT: 364 QTc: 388 Interpretive Statements SINUS RHYTHM WITH SINUS ARRHYTHMIA Compared to ECG 11/14/2024 18:11:31 NO SIGNIFICANT CHANGES Electronically Signed On 11-15-2024 15:20:48 CDT by Ronald Ornelas M.D.
[2024-11-14 21:06] VITALS: BP 123/77; PULSE 74; RESP 18; TEMP 37.2; O2SAT 100
[2024-11-14 21:29] LABS: Troponin I < 0.012 ng/mL (0.000-0.034)
--- OUTSIDE RECORDS SUMMARY | 2024-11-14 22:23 | XMS_ITS | CONTINUITY OF CARE DOCUMENT ---
Author Name joao shepherd Address Unknown Organization [facility] Address [address] [place] [address] Phone [phone] Care Team Providers Care Loan Coordinator Name Role Phone Audelia Murillo MD Unavailable [phone] Audelia Murillo MD Unavailable [phone] INSURANCE PROVIDERS Payer name Policy type / Coverage type Olivia red democrat ID [employer] MEDICA[employer] (2) Medicaid [id number]
--- OUTSIDE RECORDS SUMMARY | 2024-11-14 22:23 | XMS_ITS | Clinical Summary ---
Author Organization [facility] Address [address] [place] [address] Care Team Providers Care Paediatric Thoracic Physician Name Role Phone Unavailable Primary Care Provider Unavailabl e Source Comments [facility],non-owned Affiliates and Associated Physician Practices is amultiple site organization consisting of ambulatory clinics and hospital sitesin [place], [place], [place] and [place]. This disclosure is being madepursuant to the Care Everywhere program and may not contain all information available regarding this patient. 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
[2024-11-14 22:42] VITALS: BP 117/88; PULSE 64; RESP 17; O2SAT 100
[2024-11-14 22:44] VITALS: BP 123/90; PULSE 72; PULSE 80; RESP 12; O2SAT 100
[2024-11-14 23:03] LABS: BEDSIDEPREGUCG Negative (Negative)
[2024-11-15 01:13] VITALS: BP 113/68; PULSE 67; RESP 17; O2SAT 100
[2024-11-15] MEDS: KETOROLAC 15 MG/ML VIAL (*BKC) IV PUSH (01:38)
[2024-11-15 01:40] VITALS: BP 102/64; PULSE 66; RESP 15; O2SAT 100
== END 2024-11-15 01:44 | disposition home or self-care (01) ==
PROVIDERS: Physician Assistant; Emergency Provider Registered Nurse
DX: M94.0 Chondrocostal junction syndrome [Tietze] (principal); R09.89 Other specified symptoms and signs involving the circulatory and respiratory systems; R07.89 Other chest pain; K80.20 Calculus of gallbladder without cholecystitis without obstruction; R94.31 Abnormal electrocardiogram [ECG] [EKG]
CPT/HCPCS: 36415; 71046; 71275; 80053; 81025; 83690; 84484; 85025; 85610; 85730; 93005; 96374; 99284; J1885; Q9967